=== PATIENT | female | born 1950 | race Caucasian/White ===

== ENCOUNTER 2017-06-13 09:45 | Emergency (ER) | payer MEDICARE ==
[~2017-06-13] VITALS: Ht 162.6 cm; Wt 60.0 kg
[~2017-06-13 09:45] MED LIST: ATOR80TA41 PO; CARV3.125 PO; CLAR10TA13 PO; DOXY100T OR; LISI5 PO; METF850T PO; NEUR600T PO; PRAS10 PO
[2017-06-13 09:47] VITALS: BP 134/90; PULSE 92; RESP 20; TEMP 98.8; O2SAT 97
[2017-06-13] MEDS ORDERED: CARV3.12 PO (10:23)
[2017-06-13] MEDS ORDERED: SITA1TAB2 PO (10:23)
[2017-06-13] MEDS ORDERED: DULA10IN SQ (10:23)
[2017-06-13] MEDS ORDERED: LISI2.5T3 PO (10:23)
[2017-06-13] MEDS ORDERED: ATOR1TAB18 PO (10:23)
[2017-06-13] MEDS ORDERED: BACL10TA PO (10:23)
[2017-06-13] MEDS ORDERED: CLOP75TA PO (10:23)
[2017-06-13] MEDS ORDERED: LYRI75CA PO (10:23)
[2017-06-13] MEDS ORDERED: SERT-132 PO (10:23)
[2017-06-13] MEDS ORDERED: SODIUM CHLOR 0.9% 1000 ML INJ 1,000 ML IV ONE (10:38)
[2017-06-13] MEDS ORDERED: SODIUM CHLORIDE 0.9% FLUSH 10 ML FLUSH IVF PRN (10:45)
[2017-06-13 11:12] LABS: BASOPHIL # 0.1 TH/MM3 (0-0.2); BASOPHIL % 0.6 % (0.0-2.0); EOSINOPHIL # 0.1 TH/MM3 (0-0.4); EOSINOPHIL % 0.6 % (0.0-4.0); HEMATOCRIT 36.1 % (35.0-46.0); HEMO FLAGS DIFF FINAL; LYMPH % 24.5 % (9.0-44.0); LYMPHOCYTE # 2.3 TH/MM3 (1.0-4.8); MEAN CORPUSCULAR HEMOGLOBIN 29.5 PG (27.0-34.0); MEAN CORPUSCULAR HGB CONC 34.7 % (32.0-36.0); MONO % 9.3 % (0.0-8.0); PLATELET COUNT 374 TH/MM3 (150-450); RED BLOOD COUNT 4.25 MIL/MM3 (4.00-5.30); RED CELL DISTRIBUTION WIDTH 15.2 % (11.6-17.2); WHITE BLOOD COUNT 9.3 TH/MM3 (4.0-11.0)
[2017-06-13 11:19] LABS: BACTERIA, URINE MOD /hpf; BLOOD, URINE NEG (NEG); COMMENT (UR) CULTURE INDICATED; CULTURE IF INDICATED CULTURE INDICATED; GLUCOSE,URINE 300 mg/dL (NEG); KETONE, URINE NEG (NEG); NITRITE,URINE NEG (NEG); PH, URINE 6.5 (5.0-8.5); SQUAMOUS EPITHELIAL CELL URINE 1 /hpf (0-5); TRANSITIONAL EPI CELLS, URINE <1 /hpf; URINE COLOR YELLOW (YELLW/STRAW)
[2017-06-13 11:21] LABS: APTT (PATIENT) 25.8 SEC (24.3-30.1); PROTHROMBIN TIME - PATIENT 10.7 SEC (9.8-11.6)
--- NOTE | 2017-06-13 11:23 | RADRPT ---
EXAM DATE/TIME: 06/13/2017 10:54 [facility] COMPARISON: No previous studies available for comparison. INDICATIONS : Fell hitting head on Felix now with increase confusion,right frontal pain. RADIATION DOSE: 56.35 CTDIvol (mGy) MEDICAL HISTORY : Carcinoma, breast. Syncope SURGICAL HISTORY : Hysterectomy. Breast lumpectomy ENCOUNTER: Initial ACUITY: 3 days PAIN SCALE: 5/10 LOCATION: Right cranial TECHNIQUE: Multiple contiguous axial images were obtained of the head. Using automated exposure control and adj ustment of the mA and/or kV according to patient size, radiation dose was kept as low as reasonably a chievable to obtain optimal diagnostic quality images. DICOM format image data is available electro nically for review and comparison. FINDINGS: CEREBRUM: The ventricles are normal for age. No evidence of midline shift, mass lesion, hemorrhage or acute in farction. No extra-axial fluid collections are seen. POSTERIOR FOSSA: The cerebellum and brainstem are intact. The 4th ventricle is midline. The cerebellopontine angle i s unremarkable. EXTRACRANIAL: The visualized portion of the orbits is intact. SKULL: The calvaria is intact. No evidence of skull fracture. CONCLUSION: Normal examination for a patient of this age. Ramos Brown MD on June 13, 2017 at 11:18 Board Certified Radiologist. This report was verified electronically.
[2017-06-13] MEDS ORDERED: MORPHINE SULFATE 4 MG/ML INJ IV PUSH ONE (11:30)
[2017-06-13 11:40] LABS: ALT (GPT) 22 U/L (10-53); ANION GAP 9 MEQ/L (5-15); AST (GOT) 19 U/L (15-37); BICARBONATE 31.7 MEQ/L (21.0-32.0); BLOOD UREA NITROGEN 9 MG/DL (7-18); CHLORIDE 99 MEQ/L (98-107); GLOMERULAR FILTRATION RATE 90 ML/MIN (>89); POTASSIUM 3.5 MEQ/L (3.5-5.1); SODIUM (NA) 140 MEQ/L (136-145)
--- NOTE | 2017-06-13 11:40 | RADRPT ---
EXAM DATE/TIME: 06/13/2017 10:56 [facility] COMPARISON: No previous studies available for comparison. INDICATIONS : Fell three days ago. RADIATION DOSE: 32.54 CTDIvol (mGy) MEDICAL HISTORY : Carcinoma, breast. Syncope SURGICAL HISTORY : Hysterectomy. Lumpectomy ENCOUNTER: Initial ACUITY: 3 days PAIN SCALE: 5/10 LOCATION: neck TECHNIQUE: Volumetric scanning of the cervical spine was performed. Multiplanar reconstructions in the sagittal, coronal and oblique axial planes were performed. Using automated exposure control and adjustment o f the mA and/or kV according to patient size, radiation dose was kept as low as reasonably achievable to obtain optimal diagnostic quality images. DICOM format image data is available electronically f or review and comparison. FINDINGS: VERTEBRAE: Normal vertebral body height. ALIGNMENT: No evidence of subluxation. C2-C3: The bony spinal canal is normal in size. No evidence of disc bulge or herniation. The neural forami na are bilaterally patent. C3-C4: The bony spinal canal is normal in size. No evidence of disc bulge or herniation. The neural forami na are bilaterally patent. C4-C5: The bony spinal canal is normal in size. No evidence of disc bulge or herniation. The neural forami na are bilaterally patent. C5-C6: The bony spinal canal is normal in size. No evidence of disc bulge or herniation. The neural forami na are bilaterally patent. C6-C7: The bony spinal canal is normal in size. No evidence of disc bulge or herniation. The neural forami na are bilaterally patent. C7-T1: The bony spinal canal is normal in size. No evidence of disc bulge or herniation. The neural forami na are bilaterally patent. CONCLUSION: 1. No acute findings. Mild degenerative disc disease and facet arthropathy. No canal stenosis. Subcen timeter nodule right lobe thyroid gland. Ramos Brown MD on June 13, 2017 at 11:36 Board Certified Radiologist. This report was verified electronically.
[2017-06-13 11:43] LABS: ALKALINE PHOSPHATASE 129 U/L (45-117); CREATINE KINASE 391 U/L (26-192); TOTAL BILIRUBIN ADULT 0.5 MG/DL (0.2-1.0)
--- NOTE | 2017-06-13 11:53 | RADRPT ---
EXAM DATE/TIME: 06/13/2017 11:03 [facility] COMPARISON: CHEST SINGLE AP, February 05, 2015, 14:24. INDICATIONS : Chest pain; fall 3 days ago. MEDICAL HISTORY : Carcinoma, breast. Hypertension Diabetes. SURGICAL HISTORY : Left breast lumpectomy. ENCOUNTER: Initial ACUITY: 3 days PAIN SCORE: 8/10 LOCATION: Left chest FINDINGS: A single view of the chest demonstrates the lungs to be symmetrically aerated without evidence of mas s, infiltrate or effusion. Minimal linear atelectasis or scarring at the bases. The cardiomediastinal contours are unremarkable. Osseous structures are intact. CONCLUSION: 1. Minimal linear atelectasis or scarring at the lung bases. No effusion or pneumothorax. Ramos Brown MD on June 13, 2017 at 11:49 Board Certified Radiologist. This report was verified electronically.
--- NOTE | 2017-06-13 13:23 | RADRPT ---
EXAM DATE/TIME: 06/13/2017 12:34 [facility] COMPARISON: No previous studies available for comparison. INDICATIONS : Fall. Tailbone pain. MEDICAL HISTORY : Carcinoma, breast. Hypertension Diabetes. SURGICAL HISTORY : Hysterectomy. Left breast lumpectomy. ENCOUNTER: Initial ACUITY: 2 days PAIN SCORE: 8/10 LOCATION: Coccyx FINDINGS: Two-view examination of the sacrum and coccyx demonstrates no evidence of fracture or malalignment. The sacral ala and foramina appear symmetric and intact. The coccyx appears unremarkable. The preve rtebral soft tissues are within normal limits. CONCLUSION: 1. No acute findings. Mild degenerative change of the sacroiliac joints and pubic symphysis. Ramos Brown MD on June 13, 2017 at 13:19 Board Certified Radiologist. This report was verified electronically.
--- NOTE | 2017-06-13 13:24 | RADRPT ---
EXAM DATE/TIME: 06/13/2017 12:24 [facility] COMPARISON: No previous studies available for comparison. INDICATIONS : Fall. Tailbone pain. MEDICAL HISTORY : Carcinoma, breast. Hypertension Diabetes. SURGICAL HISTORY : Hysterectomy. Left breast lumpectomy. ENCOUNTER: Initial ACUITY: 2 days PAIN SCORE: 9/10 LOCATION: Coccyx FINDINGS: 5 views of the lumbar spine demonstrate 5 nonrib-bearing lumbar vertebral bodies with leftward convex curvature. No fracture or compression deformity is present. There is minimal anterolisthesis of L5 o n S1. There is severe facet hypertrophy at L5-S1. Decreased disc height is present at L3-L4 and L4-L5 . Small endplate osteophytes are present anteriorly at multiple levels. Pelvic bones and soft tissues demonstrate no acute finding. Clips are present in the pelvis. CONCLUSION: Mild levoscoliosis with degenerative disc disease at L3-L4 and L4-L5. There is severe facet hypertrop hy at L5-S1 resulting in minimal anterolisthesis. No acute lumbar spine abnormality is identified. Andrey Lopez MD on June 13, 2017 at 13:20 Board Certified Radiologist. This report was verified electronically.
[2017-06-13] MEDS ORDERED: MACR100C2 PO (13:40)
[2017-06-13] MEDS ORDERED: TRAM50TA PO (13:40)
--- NOTE | 2017-06-13 13:40 | PD ---
HPI Chief Complaint: Head Injury Time Seen by Provider: 10:03 Travel History International Travel<30 days: No Contact w/Intl Traveler<30days: No Traveled to known affect area: No History of Present Illness HPI Patient is a 67-year-old female who comes in after a fall. She said that Saturday she fell and hit her head. She says she was very "woozy" at the time. She says she then repeatedly fell and hit her head. She says since then, she has had pain to her tailbone as well as her left rib cage. She says she took her sister to the doctor and her sister's doctor suggested she come and get checked out. She has she also feels like she has symptoms of a UTI. She has not had fever or chills. She denies dizziness or nausea or vomiting. She denies chest pain or shortness of breath. PFSH Past Medical History Blood Disorders: No Anxiety: Yes Depression: Yes Heart Rhythm Problems: No Cancer: Yes (breast) Cardiovascular Problems: Yes High Cholesterol: No Chemotherapy: Yes (2002) Cerebrovascular Accident: No Diabetes: Yes Patient Takes Glucophage: Yes Diminished Hearing: No Endocrine: Yes Fibromyalgia: Yes Gastrointestinal Disorders: No Genitourinary: Yes Headaches: Yes Hypertension: Yes Immune Disorder: Yes (FIBROMYALGIA) Kidney Stones: No Musculoskeletal: Yes (FIBROMYALGIA) Neurologic: Yes Psychiatric: No Reproductive: No Respiratory: No Radiation Therapy: Yes Renal Failure: No Seizures: No Thyroid Disease: No PNEUMOCCOCAL Vaccine (Year): 2 Past Surgical History Surgical History: No Previous Surgery AICD: No Gynecologic Surgery: Yes (TOTAL HYSTERECTOMY) Hysterectomy: Yes Joint Replacement: No Pacemaker: No Other Surgery: Yes (lumpectomy left breast 2000) Social History Alcohol Use: Yes (Rarely) Tobacco Use: No Substance Use: No Allergies-Medications (Allergen,Severity, Reaction): Coded Allergies: Aspirin (Verified Allergy, Severe, 02/08/12) UNKNOWN Levaquin (Verified Allergy, Severe, SWELLING, 02/08/12) Shellfish (Verified Allergy, Mild, VOMITING/DIARRHEA, 02/08/12) Insulins (Verified Adverse Reaction, Intermediate, Shortness of Breath, ) SHORTNESS OF BREATH AND ITCHING WHEN SHE HAS HAD NOVOLOG IN THE PAST Reported Meds & Prescriptions Reported Meds & Active Scripts Active Tramadol (Tramadol HCl) 50 Mg Tab 50 Mg PO Q6H PRN Macrobid (Nitrofurantoin Monohydrate Macrocrystals) 100 Mg Capsule 100 Mg PO BID 5 Days Reported Trulicity Inj (Dulaglutide Inj) 0.75 Mg/0.5 Ml Pen 0.75 Mg SQ Q7D Lyrica (Pregabalin) 75 Mg Cap 75 Mg PO BID Carvedilol 3.125 Mg Tab 3.125 Mg PO BID Baclofen 10 Mg Tab 10 Mg PO DAILY PRN Sertraline (Sertraline HCl) 50 Mg Tab 50 Mg PO DAILY Januvia (Sitagliptin Phosphate) 100 Mg Tab 100 Mg PO DAILY Clopidogrel (Clopidogrel Bisulfate) 75 Mg Tab 75 Mg PO DAILY Atorvastatin (Atorvastatin Calcium) 80 Mg Tab 80 Mg PO HS Lisinopril 2.5 Mg Tab 2.5 Mg PO DAILY Review of Systems Except as stated in HPI: all other systems reviewed are Neg General / Constitutional: No: Fever, Chills Eyes: No: Blurred Vision HENT: Positive: Headaches Cardiovascular: No: Chest Pain or Discomfort Respiratory: No: Shortness of Breath Gastrointestinal: No: Nausea, Vomiting, Abdominal Pain Genitourinary: Positive: Dysuria Musculoskeletal: Positive: Pain Skin: No Rash, No Change in Pigmentation Neurologic: No: Weakness, Dizziness Physical Exam Narrative GENERAL: Awake and alert, in no acute distress. SKIN: Focused skin assessment warm/dry. HEAD: Atraumatic. Normocephalic. EYES: Pupils equal and round. No scleral icterus. Extraocular movements intact. ENT: Mucous membranes pink and moist. NECK: Trachea midline. No JVD. No cervical spine tenderness. CARDIOVASCULAR: Regular rate and rhythm. No murmur appreciated. RESPIRATORY: No accessory muscle use. Clear to auscultation. Breath sounds equal bilaterally. GASTROINTESTINAL: Abdomen soft, non-tender, nondistended. MUSCULOSKELETAL: No obvious deformities. No clubbing. No cyanosis. No edema. Tender to palpation of the sacral area. No pelvic pain or instability. NEUROLOGICAL: Awake and alert. No obvious cranial nerve deficits. Motor grossly within normal limits. Normal speech. PSYCHIATRIC: Appropriate mood and affect; insight and judgment normal. Data Data Last Documented VS Vital Signs Date Time Temp Pulse Resp B/P Pulse Ox O2 Delivery O2 Flow Rate FiO2 06/13/17 09:47 98.8 92 20 134/90 97 Room Air Orders Electrocardiogram (06/13/17 ) Complete Blood Count With Diff (06/13/17 10:38) Comprehensive Metabolic Panel (06/13/17 10:38) Ckmb (Isoenzyme) Profile (06/13/17 10:38) Troponin I (06/13/17 10:38) Act Partial Throm Time (Ptt) (06/13/17 10:38) Prothrombin Time / Inr (Pt) (06/13/17 10:38) Urinalysis - C+S If Indicated (06/13/17 10:38) Ua Includes Microscopic (06/13/17 10:38) Chest, Single Ap (06/13/17 10:38) Ct Brain W/O Iv Contrast(Rout) (06/13/17 10:38) Ct Cerv Spine W/O Contrast (06/13/17 10:38) Ecg Monitoring (06/13/17 10:38) Iv Access Insert/Monitor (06/13/17 10:38) Oximetry (06/13/17 10:38) Sodium Chloride 0.9% Flush (Ns Flush) (06/13/17 10:45) Sodium Chlor 0.9% 1000 Ml Inj (Ns 1000 M (06/13/17 10:38) Morphine Inj (Morphine Inj) (06/13/17 11:30) Urine Culture (06/13/17 10:45) CKMB (06/13/17 10:45) CKMB% (06/13/17 10:45) Spine, Lumbar Comp W/Obliq (06/13/17 ) Sacrum And Coccyx (06/13/17 ) Labs Laboratory Tests Test 06/13/17 10:45 White Blood Count 9.3 TH/MM3 Red Blood Count 4.25 MIL/MM3 Hemoglobin 12.5 GM/DL Hematocrit 36.1 % Mean Corpuscular Volume 85.0 FL Mean Corpuscular Hemoglobin 29.5 PG Mean Corpuscular Hemoglobin 34.7 % Concent Red Cell Distribution Width 15.2 % Platelet Count 374 TH/MM3 Mean Platelet Volume 7.5 FL Neutrophils (%) (Auto) 65.0 % Lymphocytes (%) (Auto) 24.5 % Monocytes (%) (Auto) 9.3 % Eosinophils (%) (Auto) 0.6 % Basophils (%) (Auto) 0.6 % Neutrophils # (Auto) 6.0 TH/MM3 Lymphocytes # (Auto) 2.3 TH/MM3 Monocytes # (Auto) 0.9 TH/MM3 Eosinophils # (Auto) 0.1 TH/MM3 Basophils # (Auto) 0.1 TH/MM3 CBC Comment DIFF FINAL Differential Comment Prothrombin Time 10.7 SEC Prothromb Time International 1.0 RATIO Ratio Activated Partial 25.8 SEC Thromboplast Time Urine Color YELLOW Urine Turbidity CLEAR Urine pH 6.5 Urine Specific [place] 1.008 Urine Protein NEG mg/dL Urine Glucose (UA) 300 mg/dL Urine Ketones NEG mg/dL Urine Occult Blood NEG Urine Nitrite NEG Urine Bilirubin NEG Urine Urobilinogen LESS THAN 2.0 MG/DL Urine Leukocyte Esterase LARGE Urine RBC 1 /hpf Urine WBC 28 /hpf Urine Squamous Epithelial 1 /hpf Cells Urine Transitional Epithelial <1 /hpf Cells Urine Bacteria MOD /hpf Microscopic Urinalysis Comment CULTURE INDICATED Sodium Level 140 MEQ/L Potassium Level 3.5 MEQ/L Chloride Level 99 MEQ/L Carbon Dioxide Level 31.7 MEQ/L Anion Gap 9 MEQ/L Blood Urea Nitrogen 9 MG/DL Creatinine 0.66 MG/DL Estimat Glomerular Filtration 90 ML/MIN Rate Random Glucose 235 MG/DL Calcium Level 8.7 MG/DL Total Bilirubin 0.5 MG/DL Aspartate Amino Transf 19 U/L (AST/SGOT) Alanine Aminotransferase 22 U/L (ALT/SGPT) Alkaline Phosphatase 129 U/L Total Creatine Kinase 391 U/L Creatine Kinase MB 1.0 NG/ML Creatine Kinase MB % 0.3 % Troponin I LESS THAN 0.02 NG/ML Total Protein 7.1 GM/DL Albumin 3.3 GM/DL [facility] Medical Decision Making Medical Screen Exam Complete: Yes Emergency Medical Condition: Yes Medical Record Reviewed: Yes Differential Diagnosis ICH versus concussion versus cervical spine injury versus sacral fracture Narrative Course Patient is a 67-year-old female who comes in after a fall on Saturday. Exam shows some tenderness to the sacrum. IV status, labs sent. Labs show no acute abnormalities. Urinalysis is positive for UTI. CT head and C-spine performed show no acute abnormalities. Chest x-ray, lumbar spine x-ray, sacral x-ray show no acute abnormalities. Last [address] 06/13/17 1038 Signed Impressions: Service Date/Time: June 10:54 - CONCLUSION: Normal examination for a patient of this age. Ramos Brown MD Chest X-Ray 06/13/17 1038 Signed Impressions: Service Date/Time: June 11:03 - CONCLUSION: 1. Minimal linear atelectasis or scarring at the lung bases. No effusion or pneumothorax. Ramos Brown MD Cervical Spine CT 06/13/17 1038 Signed Impressions: Service Date/Time: June 10:56 - CONCLUSION: 1. No acute findings. Mild degenerative disc disease and facet arthropathy. No canal stenosis. Subcentimeter nodule right lobe thyroid gland. Ramos Brown MD Sacrum and Coccyx X-Ray 06/13/17 0000 Signed Impressions: Service Date/Time: June 12:34 - CONCLUSION: 1. No acute findings. Mild degenerative change of the sacroiliac joints and pubic symphysis. Ramos Brown MD Lumbar Spine X-Ray 06/13/17 0000 Signed Impressions: Service Date/Time: June 12:24 - CONCLUSION: Mild levoscoliosis with degenerative disc disease at L3-L4 and L4-L5. There is severe facet hypertrophy at L5-S1 resulting in minimal anterolisthesis. No acute lumbar spine abnormality is identified. Andrey Lopez MD Patient given a prescription for tramadol as well as Macrobid for her UTI. She is advised follow-up with her doctor. Advised to return to the ED as needed for any worsening symptoms. Diagnosis Primary Impression: UTI (urinary tract infection) Qualified Code: N30.00 - Acute cystitis without hematuria Additional Impression: Musculoskeletal pain Patient Instructions: General Instructions, Musculoskeletal Pain (ED), Urinary Tract Infection in Women (ED) Additional Instructions: Drink plenty of fluids. Take all of your antibiotic. Take pain medicine as needed, be careful as it may make you drowsy. Follow up with your doctor. Return to the ED as needed for any worsening symptoms. Scripts Tramadol 50 Mg Tab50 Mg PO Q6H PRN (PAIN) #10 TAB Ref 0 Prov:Kamini Hunt MD 06/13/17 Nitrofurantoin Monohydrate Macrocrystals (Macrobid)100 Mg [id number] Mg PO BID 5 Days Ref 0 Prov:Kamini Hunt MD 06/13/17 Disposition: 01 DISCHARGE HOME Condition: Stable Kamini Hunt MD Jun 13, 2017 13:40
--- NOTE | 2017-06-13 15:05 | EKG ---
Date Performed: 06/13/2017 Time Performed: 10:09:44 PTAGE: 67 years EKG: Sinus rhythm INFERIOR MYOCARDIAL INFARCTION ABNORMAL ECG PREVIOUS TRACING : 02/06/2015 06.13 Since previous tracing, no significant change noted DOCTOR: Kayleigh Power Interpretating Date/Time 06/13/2017 15:05:11
== END 2017-06-13 13:51 | disposition home or self-care (01) ==
LOC: NEPE 09:45
DX: N39.0 Urinary tract infection, site not specified (principal); B96.1 Klebsiella pneumoniae [K. pneumoniae] as the cause of diseases classified elsewhere; R52 Pain, unspecified; M51.36 Other intervertebral disc degeneration, lumbar region; I25.2 Old myocardial infarction; R94.31 Abnormal electrocardiogram [ECG] [EKG]; E11.9 Type 2 diabetes mellitus without complications; I10 Essential (primary) hypertension; M79.7 Fibromyalgia
CPT/HCPCS: 70450; 71010; 72110; 72125; 72220; 80053; 81001; 82550; 82552; 84484; 85025; 85610; 85730; 87077; 87086; 87186; 93005; 96361; 96374; 99285; J2270; J7030

== ENCOUNTER 2018-05-03 07:44 | Observation (INO) | payer MEDICARE ==
[~2018-05-03] VITALS: Ht 162.6 cm; Wt 59.0 kg
[2018-05-03] VITALS (7 sets, daily range): BP systolic 118–146; BP diastolic 68–82; PULSE 86–107; RESP 16–18; TEMP 97.8–98.7; O2SAT 93–99
[~2018-05-03 07:44] MED LIST changes: -ATOR80TA41 PO; +ATOR80TA45 PO; +BACL10TA PO; +CARV3.12 PO; -CARV3.125 PO; -CLAR10TA13 PO; +CLOP75TA PO; -DOXY100T OR; +DULA10IN SQ; +LISI2.5T3 PO; -LISI5 PO; +LYRI75CA PO; +MACR100C2 PO; -METF850T PO; -NEUR600T PO; -PRAS10 PO; +SERT-132 PO; +SITA1TAB2 PO; +TRAM50TA PO
--- NOTE | 2018-05-03 08:18 | PD ---
HPI Chief Complaint: Musculoskeletal Complaint Time Seen by Provider: 08:05 Travel History International Travel<30 days: No Contact w/Intl Traveler<30days: No Traveled to known affect area: No History of Present Illness HPI 68yo F with PMH of CAD s/p stent presents to the ED with c/o bilateral leg weakness for 1 month but is worst last night. Said her knees give out and they "dont work". Pt said she does not have pain in her knees but they just dont work. Said she is unable to ambulate since yesterday. Pt has chronic lower back pain for 1 year. Denies any fever, chest pain, sob, n/v, abdominal pain, focal numbness, urinary incontinence. Said she cannot have an MRI because of her stent. PFSH Past Medical History Blood Disorders: No Anxiety: Yes Depression: Yes Heart Rhythm Problems: No Cancer: Yes (breast) Cardiovascular Problems: Yes High Cholesterol: No Chemotherapy: Yes (2002) Cerebrovascular Accident: No Diabetes: Yes Diminished Hearing: No Endocrine: Yes Fibromyalgia: Yes Gastrointestinal Disorders: No Genitourinary: Yes Headaches: Yes Hypertension: Yes Immune Disorder: Yes (FIBROMYALGIA) Kidney Stones: No Musculoskeletal: Yes (FIBROMYALGIA) Neurologic: Yes Psychiatric: No Reproductive: No Respiratory: No Radiation Therapy: Yes Renal Failure: No Seizures: No Thyroid Disease: No PNEUMOCCOCAL Vaccine (Year): 2 Past Surgical History AICD: No Gynecologic Surgery: Yes (TOTAL HYSTERECTOMY) Hysterectomy: Yes Joint Replacement: No Pacemaker: No Other Surgery: Yes (lumpectomy left breast 2000) Social History Alcohol Use: Yes (Rarely) Tobacco Use: No Substance Use: No Allergies-Medications (Allergen,Severity, Reaction): Coded Allergies: aspirin (Verified Allergy, Severe, Anaphylaxis, 05/03/18) levofloxacin (Verified Allergy, Severe, Anaphylaxis, 05/03/18) insulin aspart (Unverified Adverse Reaction, Intermediate, Shortness of Breath, 06/25/17) SHORTNESS OF BREATH AND ITCHING WHEN SHE HAS HAD NOVOLOG IN THE PAST insulin aspart protamine human (Verified Adverse Reaction, Intermediate, Shortness of Breath, 05/03/18) SHORTNESS OF BREATH AND ITCHING WHEN SHE HAS HAD NOVOLOG IN THE PAST insulin detemir (Verified Adverse Reaction, Intermediate, Shortness of Breath, 05/03/18) SHORTNESS OF BREATH AND ITCHING WHEN SHE HAS HAD NOVOLOG IN THE PAST insulin glargine (Verified Adverse Reaction, Intermediate, Shortness of Breath, 05/03/18) SHORTNESS OF BREATH AND ITCHING WHEN SHE HAS HAD NOVOLOG IN THE PAST insulin isophane (NPH) (Verified Adverse Reaction, Intermediate, Shortness of Breath, 05/03/18) SHORTNESS OF BREATH AND ITCHING WHEN SHE HAS HAD NOVOLOG IN THE PAST insulin lispro (Verified Adverse Reaction, Intermediate, Shortness of Breath, 05/03/18) SHORTNESS OF BREATH AND ITCHING WHEN SHE HAS HAD NOVOLOG IN THE PAST insulin regular (Verified Adverse Reaction, Intermediate, Shortness of Breath, 05/03/18) SHORTNESS OF BREATH AND ITCHING WHEN SHE HAS HAD NOVOLOG IN THE PAST shellfish derived (Verified Adverse Reaction, Mild, VOMITING/DIARRHEA, ) Reported Meds & Prescriptions Reported Meds & Active Scripts Active Tramadol (Tramadol HCl) 50 Mg Tab 50 Mg PO Q6H PRN Macrobid (Nitrofurantoin Monohydrate Macrocrystals) 100 Mg Capsule 100 Mg PO BID 5 Days Reported Victoza Inj (Liraglutide Inj) 18 Mg/3 Ml Pen 1.2 Mg SQ DAILY Janumet (Sitagliptin-Metformin) 50-1,000 Mg Tab 1 Tab PO BID Gabapentin 600 Mg Tab 600 Mg PO TID Lyrica (Pregabalin) 75 Mg Cap 75 Mg PO BID Carvedilol 3.125 Mg Tab 3.125 Mg PO BID Baclofen 10 Mg Tab 10 Mg PO DAILY PRN Sertraline (Sertraline HCl) 50 Mg Tab 50 Mg PO DAILY Clopidogrel (Clopidogrel Bisulfate) 75 Mg Tab 75 Mg PO DAILY Atorvastatin (Atorvastatin Calcium) 80 Mg Tab 80 Mg PO HS Lisinopril 2.5 Mg Tab 2.5 Mg PO DAILY Review of Systems Except as stated in HPI: all other systems reviewed are Neg Physical Exam Narrative GENERAL: 68yo F in mild distress. SKIN: Focused skin assessment warm/dry. HEAD: Atraumatic. Normocephalic. EYES: Pupils equal and round. No scleral icterus. No injection or drainage. ENT: No nasal bleeding or discharge. Mucous membranes pink and moist. NECK: Trachea midline. No JVD. CARDIOVASCULAR: Regular rate and rhythm. No murmur appreciated. RESPIRATORY: No accessory muscle use. Clear to auscultation. Breath sounds equal bilaterally. GASTROINTESTINAL: Abdomen soft, nontender, nondistended. No rebound tenderness or guarding. BACK: Mild ttp L4-5. No erythema. No edema. MUSCULOSKELETAL: Some erythema in bilateral knees. Distal pulses intact. No edema. Deep tendon reflex bilateral knees normal. NEUROLOGICAL: Awake and alert. No obvious cranial nerve deficits. Pt is unable to elevated bilateral lower extremity off the bed. Muscle strength 3/5 in bilateral lower extremity. Sensation intact in all extremities. Normal speech. PSYCHIATRIC: Appropriate mood and affect; insight and judgment normal. Data Data Last Documented VS Vital Signs Date Time Temp Pulse Resp B/P (MAP) Pulse Ox O2 Delivery O2 Flow Rate FiO2 05/03/18 10:00 97.8 96 18 118/77 (91) 99 Room Air Orders Orders Complete Blood Count With Diff (05/03/18 08:14) Basic Metabolic Panel (Bmp) (05/03/18 08:14) Knee, Ltd (1 Or 2vws) (05/03/18 ) Knee, Ltd (1 Or 2vws) (05/03/18 ) Ct Lumb Spine W/O Contrast (05/03/18 ) Ct Brain W/O Iv Contrast(Rout) (05/03/18 ) Oxycodone-Acetamin 5-325 Mg (Percocet (05/03/18 10:30) Admit Order (Ed Use Only) (05/03/18 11:15) Labs Laboratory Tests Test 05/03/18 08:50 White Blood Count 9.9 TH/MM3 Red Blood Count 4.45 MIL/MM3 Hemoglobin 13.1 GM/DL Hematocrit 39.4 % Mean Corpuscular Volume 88.6 FL Mean Corpuscular Hemoglobin 29.5 PG Mean Corpuscular Hemoglobin Concent 33.3 % Red Cell Distribution Width 14.3 % Platelet Count 205 TH/MM3 Mean Platelet Volume 9.3 FL Neutrophils (%) (Auto) 67.8 % Lymphocytes (%) (Auto) 20.9 % Monocytes (%) (Auto) 10.0 % Eosinophils (%) (Auto) 1.0 % Basophils (%) (Auto) 0.3 % Neutrophils # (Auto) 6.7 TH/MM3 Lymphocytes # (Auto) 2.1 TH/MM3 Monocytes # (Auto) 1.0 TH/MM3 Eosinophils # (Auto) 0.1 TH/MM3 Basophils # (Auto) 0.0 TH/MM3 CBC Comment DIFF FINAL Differential Comment Erythrocyte Sedimentation Rate 24 mm/hr Blood Urea Nitrogen 10 MG/DL Creatinine 0.80 MG/DL Random Glucose 428 MG/DL Calcium Level 9.3 MG/DL Sodium Level 136 MEQ/L Potassium Level 3.7 MEQ/L Chloride Level 98 MEQ/L Carbon Dioxide Level 25.7 MEQ/L Anion Gap 12 MEQ/L Estimat Glomerular Filtration Rate 72 ML/MIN Total Creatine Kinase 108 U/L Thyroid Stimulating Hormone 3rd Gen 1.040 uIU/ML MDM Medical Decision Making Medical Screen Exam Complete: Yes Emergency Medical Condition: Yes Differential Diagnosis Arthritis vs. Spinal stenosis vs. CVA Narrative Course 68yo F here with c/o inability to walk since last night because of bilateral lower extremity weakness. Pt said her knees just give out and her legs are weak. Denies pain but was kneeling on her knees and could not get up. Labs reviewed, no leukocytosis. H/H normal. Glucose elevated at 428. No increased anion gap. CT brain negative. Bilateral knees showed mild osteoarthritis. CT LS spine showed no compression fracture or spondylolisthesis. Multilevel disc bulges without canal stenosis. Mild degenerative changes. Attempted to walk patient but she is weak and have abnormal gait. Pt initially said she cant have MRI because of her stent so that was why CT was ordered but now said it is conditional so may be able to have it. Pt will need further work up as an inpatient so discussed with Dr. Abad and accepted to his service. Diagnosis Primary Impression: Lower extremity weakness Qualified Codes: R29.898 - Other symptoms and signs involving the musculoskeletal system Admitting Information Admitting Physician Requests: it Karly Vasquez DO May 03, 2018 08:18
[2018-05-03] MEDS ORDERED: JANU50TA8 PO (08:22)
[2018-05-03] MEDS ORDERED: GABA600T PO (08:22)
[2018-05-03] MEDS ORDERED: VICT18IN SQ (08:22)
--- NOTE | 2018-05-03 08:49 | RADRPT ---
EXAM DATE: 05/03/2018 8:44 AM EDT AGE/SEX: 68 years / Female INDICATIONS: Trauma. CLINICAL DATA: This is the patient's initial encounter. Patient reports that signs and symptoms have been present for 1 day and indicates a pain score of 0/10. MEDICAL/SURGICAL HISTORY: Vertigo. None. COMPARISON: No prior exams available for comparison. FINDINGS: Bony structures are intact and in normal alignment. Mild osteoarthritis without fracture. Soft tissue s are unremarkable. No radiopaque foreign bodies seen. CONCLUSION: Mild osteoarthritis without fracture. Electronically signed by: Adria Moreno MD 05/03/2018 8:48 AM EDT
--- NOTE | 2018-05-03 08:49 | RADRPT ---
EXAM DATE: 05/03/2018 8:43 AM EDT AGE/SEX: 68 years / Female INDICATIONS: Trauma. CLINICAL DATA: This is the patient's initial encounter. Patient reports that signs and symptoms have been present for 1 day and indicates a pain score of 0/10. MEDICAL/SURGICAL HISTORY: None. None. COMPARISON: No prior exams available for comparison. FINDINGS: Bony structures are intact and in normal alignment. Mild osteoarthritis without fracture or dislocati on. Soft tissues are unremarkable. No radiopaque foreign bodies seen. CONCLUSION: Mild osteoarthritis without fracture. Electronically signed by: Adria Moreno MD 05/03/2018 8:47 AM EDT
[2018-05-03 09:12] LABS: AUTOMATED NEUTROPHIL # 6.7 TH/MM3 (1.8-7.7); BASOPHIL % 0.3 % (0.0-2.0); EOSINOPHIL # 0.1 TH/MM3 (0-0.4); HEMATOCRIT 39.4 % (35.0-46.0); HEMOGLOBIN 13.1 GM/DL (11.6-15.3); LYMPH % 20.9 % (9.0-44.0); LYMPHOCYTE # 2.1 TH/MM3 (1.0-4.8); MEAN CELL VOLUME 88.6 FL (80.0-100.0); MEAN CORPUSCULAR HEMOGLOBIN 29.5 PG (27.0-34.0); MEAN CORPUSCULAR HGB CONC 33.3 % (32.0-36.0); MEAN PLATELET VOLUME 9.3 FL (7.0-11.0); NEUT % 67.8 % (16.0-70.0); PLATELET COUNT 205 TH/MM3 (150-450); RED BLOOD COUNT 4.45 MIL/MM3 (4.00-5.30); RED CELL DISTRIBUTION WIDTH 14.3 % (11.6-17.2); WHITE BLOOD COUNT 9.9 TH/MM3 (4.0-11.0)
--- NOTE | 2018-05-03 09:15 | RADRPT ---
EXAM DATE: 05/03/2018 9:02 AM EDT AGE/SEX: 68 years / Female INDICATIONS: Syncopal episode last night with fall. Bilateral leg weakness for one month. CLINICAL DATA: This is the patient's initial encounter. Patient reports that signs and symptoms have been present for 1 day and indicates a pain score of 0/10. MEDICAL/SURGICAL HISTORY: Cardiovascular disease. Carcinoma, breast. Hypertension. Diabetes, Fib romyalgia. Coronary artery stent. RADIATION DOSE: 56.35 CTDI (mGy) COMPARISON: [facility] [place], CT BRAIN W/O CONTRAST, 06/13/2017. . TECHNIQUE: CT of the head without contrast. Using automated exposure control and adjustment of the mA and/or kV according to patient size, radiation dose was kept as low as reasonably achievable to ob tain optimal diagnostic quality images. DICOM format image data is available electronically for revi ew and comparison. FINDINGS: Cerebrum: The ventricles are normal for age. No evidence of midline shift, mass lesion, hemorrhage or acute infarction. No extraaxial fluid collections are seen. Posterior Fossa: The cerebellum and brainstem are intact. The 4th ventricle is midline. The cerebe llopontine angle is unremarkable. Extracranial: The visualized portion of the orbits is intact. Skull: The calvaria is intact. No evidence of skull fracture. CONCLUSION: 1. No acute intracranial abnormality Electronically signed by: Adria Moreno MD 05/03/2018 9:14 AM EDT
--- NOTE | 2018-05-03 09:19 | RADRPT ---
EXAM DATE: 05/03/2018 9:06 AM EDT AGE/SEX: 68 years / Female INDICATIONS: Bilteral leg weakness. Fall last night. CLINICAL DATA: This is the patient's initial encounter. Patient reports that signs and symptoms have been present for 1 day and indicates a pain score of 6/10. MEDICAL/SURGICAL HISTORY: Cardiovascular disease. Hypertension. Carcinoma, breast. Chronic back pain, fibromyalgia, diabetes. Hysterectomy. Coronary artery stent. RADIATION DOSE: 19.87 CTDI (mGy) COMPARISON: No prior exams available for comparison. TECHNIQUE: Contiguous axial images were acquired with a multirow detector CT scanner without contras t. Multiplanar reconstructions in the sagittal and coronal plane were also performed. Using automate d exposure control and adjustment of the mA and/or kV according to patient size, radiation dose was k ept as low as reasonably achievable to obtain optimal diagnostic quality images. DICOM format image data is available electronically for review and comparison. FINDINGS: Vertebrae: Normal vertebral body height. Diffuse mild degenerative changes. Alignment: Slight levo curvature. No spondylolisthesis. T12-L1: The thecal sac has a normal diameter. No evidence of disc bulge or protrusion. The neural foramina are patent bilaterally. L1-L2: Mild broad-based disc bulge abuts the ventral thecal sac without canal stenosis. The neural foramina are patent bilaterally. L2-L3: Mild broad-based disc bulge abuts the ventral thecal sac without canal stenosis.The neural fo ramina are patent bilaterally. L3-L4: Mild broad-based disc bulge abuts the ventral thecal sac without canal stenosis.The neural fo ramina are patent bilaterally. L4-L5: Mild broad-based disc bulge abuts the ventral thecal sac without canal stenosis. The neural f oramina are patent bilaterally. L5-S1: Mild broad-based disc bulge abuts the ventral thecal sac without canal stenosis. Mild neural foraminal narrowing bilaterally. Moderate facet arthropathy greater on the right. CONCLUSION: 1. No compression fracture or spondylolisthesis. 2. Levocurvature. 3. Mild degenerative changes. 4. Multilevel disc bulges without canal stenosis. Electronically signed by: Adria Moreno MD 05/03/2018 9:17 AM EDT
[2018-05-03 09:35] LABS: BICARBONATE 25.7 MEQ/L (21.0-32.0); CALCIUM 9.3 MG/DL (8.5-10.1); CREATININE 0.8 MG/DL (0.50-1.00)
[2018-05-03] MEDS ORDERED: oxyCODONE/ACETAMINOPHEN 5 MG/325 MG TAB PO ONE (10:30)
[2018-05-03] MEDS ORDERED: GADODIAMIDE PF 287 MG/ML 5 ML VIAL (for RAD MRI) IVCONTRAST ONE (11:18)
[2018-05-03] MEDS ORDERED: GLUCAGON 1 MG/ML VIAL OTHER PRN (11:45)
[2018-05-03] MEDS ORDERED: DEXTROSE 50% IN WATER 50 ML VIAL(D50) IV PUSH PRN (11:45)
[2018-05-03] MEDS ORDERED: BACLOFEN 10 MG TAB PO PRN (11:45)
[2018-05-03] MEDS ORDERED: SODIUM CHLORIDE 0.9% FLUSH 10 ML FLUSH IV FLUSH PRN (12:00)
[2018-05-03] MEDS ORDERED: BISACODYL 10 MG SUPP RECTAL PRN (12:00)
[2018-05-03] MEDS ORDERED: ACETAMINOPHEN 325 MG TAB PO PRN ×2 (12:00)
[2018-05-03] MEDS ORDERED: SENNOSIDES 8.6 MG TAB PO PRN (12:00)
[2018-05-03] MEDS ORDERED: LACTULOSE SYRUP 20 GM/30 ML CUP PO PRN (12:00)
[2018-05-03] MEDS ORDERED: INSULIN ASPART SUPPLEMENTAL SCALE SQ SCH (12:00)
[2018-05-03] MEDS ORDERED: NALOXONE HCL 0.4 MG/ML AMP IV PUSH PRN (12:00)
[2018-05-03] MEDS ORDERED: MAGNESIUM HYDROXIDE SUSP 30 ML CUP PO PRN (12:00)
--- NOTE | 2018-05-03 12:22 | HHI.HP ---
[facility] Unknown Admission Diagnosis Bilateral lower extremity weakness Diagnoses: Chief Complaint: Cannot walk Travel History International Travel<30 Days: No Contact w/Intl Traveler <30 Da: No Traveled to Known Affected Are: No History of Present Illness This is a 68-year-old female who presents to the emergency department complaining of inability to walk. Patient reports that for the past month she has been having problems with her knees giving out. Last night, she was unable to get up and ambulate because of her knees giving out. She had several falls and complains of bilateral elbow and knee pain. She also hit her head but denies loss of consciousness. She denies neck pain, unilateral weakness, fever , chills, insect bites, rash, nausea, difficulty swallowing, shortness of breath , chest pain, UTI symptoms, diarrhea, numbness and incontinence. Denies taking any new medicine. States she has chronic lower back pain, coronary artery disease status post stent in 2014, breast cancer status post surgery, chemo and radiation therapy, diabetes mellitus, hypertension, hyperlipidemia, fibromyalgia and depression. All other systems reviewed negative. Review of Systems Except as stated in HPI: all other systems reviewed are Neg Past Family Social History Past Medical History As previously mentioned Past Surgical History As previously mentioned. Total hysterectomy Reported Medications Active Tramadol (Tramadol HCl) 50 Mg Tab 50 Mg PO Q12H PRN Reported Victoza Inj (Liraglutide Inj) 18 Mg/3 Ml Pen 1.8 Mg SQ DAILY Janumet (Sitagliptin-Metformin) 50-1,000 Mg Tab 1 Tab PO BID Gabapentin 600 Mg Tab 600 Mg PO TID Lyrica (Pregabalin) 75 Mg Cap 75 Mg PO TID Carvedilol 3.125 Mg Tab 3.125 Mg PO BID Baclofen 10 Mg Tab 10 Mg PO HS PRN Sertraline (Sertraline HCl) 50 Mg Tab 50 Mg PO DAILY Clopidogrel (Clopidogrel Bisulfate) 75 Mg Tab 75 Mg PO DAILY Atorvastatin (Atorvastatin Calcium) 80 Mg Tab 80 Mg PO HS Lisinopril 2.5 Mg Tab 2.5 Mg PO DAILY Allergies: Coded Allergies: aspirin (Verified Allergy, Severe, Anaphylaxis, 05/03/18) levofloxacin (Verified Allergy, Severe, Anaphylaxis, 05/03/18) insulin aspart (Unverified Adverse Reaction, Intermediate, Shortness of Breath, 06/25/17) SHORTNESS OF BREATH AND ITCHING WHEN SHE HAS HAD NOVOLOG IN THE PAST insulin aspart protamine human (Verified Adverse Reaction, Intermediate, Shortness of Breath, 05/03/18) SHORTNESS OF BREATH AND ITCHING WHEN SHE HAS HAD NOVOLOG IN THE PAST insulin detemir (Verified Adverse Reaction, Intermediate, Shortness of Breath, 05/03/18) SHORTNESS OF BREATH AND ITCHING WHEN SHE HAS HAD NOVOLOG IN THE PAST insulin glargine (Verified Adverse Reaction, Intermediate, Shortness of Breath, 05/03/18) SHORTNESS OF BREATH AND ITCHING WHEN SHE HAS HAD NOVOLOG IN THE PAST insulin isophane (NPH) (Verified Adverse Reaction, Intermediate, Shortness of Breath, 05/03/18) SHORTNESS OF BREATH AND ITCHING WHEN SHE HAS HAD NOVOLOG IN THE PAST insulin lispro (Verified Adverse Reaction, Intermediate, Shortness of Breath, 05/03/18) SHORTNESS OF BREATH AND ITCHING WHEN SHE HAS HAD NOVOLOG IN THE PAST insulin regular (Verified Adverse Reaction, Intermediate, Shortness of Breath, 05/03/18) SHORTNESS OF BREATH AND ITCHING WHEN SHE HAS HAD NOVOLOG IN THE PAST shellfish derived (Verified Adverse Reaction, Mild, VOMITING/DIARRHEA, ) Family History ALS-father Social History Occasional alcohol use. Does not smoke or use illicit drugs. Lives with her sister Physical Exam Vital Signs Vital Signs Date Time Temp Pulse Resp B/P (MAP) Pulse Ox O2 Delivery O2 Flow Rate FiO2 05/03/18 08:23 98 18 05/03/18 07:57 98.2 107 16 120/72 (88) 96 Physical Exam GENERAL: This is a well-nourished, well-developed patient, in no apparent distress. SKIN: No rashes, ecchymoses or lesions. Cool and dry. Right knee slight erythema HEAD: Atraumatic. Normocephalic. No temporal or scalp tenderness. EYES: Pupils equal round and reactive. Extraocular motions intact. No scleral icterus. No injection or drainage. ENT: Nose without bleeding, purulent drainage or septal hematoma. Throat without erythema, tonsillar hypertrophy or exudate. Uvula midline. Airway patent. Edentulous NECK: Trachea midline. No JVD or lymphadenopathy. Supple, nontender, no meningeal signs. CARDIOVASCULAR: Regular rate and rhythm without murmurs, gallops, or rubs. RESPIRATORY: Clear to auscultation. Breath sounds equal bilaterally. No wheezes , rales, or rhonchi. GASTROINTESTINAL: Abdomen soft, non-tender, nondistended. No guarding. MUSCULOSKELETAL: Extremities without clubbing, cyanosis, or edema. Right knee slightly tender. No calf tenderness. Negative Homans sign bilaterally. NEUROLOGICAL: Awake and alert. Cranial nerves II through XII intact. Sensory grossly within normal limits. Five out of 5 muscle strength in UE muscle groups. She has weakness bilateral leg Muscles but able to raise slightly against resistance. DTR present. Babinski present. Patient unable to ambulate secondary to unsteady gait. Normal speech. Laboratory Laboratory Tests Test 05/03/18 08:50 White Blood Count 9.9 Red Blood Count 4.45 Hemoglobin 13.1 Hematocrit 39.4 Mean Corpuscular Volume 88.6 Mean Corpuscular Hemoglobin 29.5 Mean Corpuscular Hemoglobin Concent 33.3 Red Cell Distribution Width 14.3 Platelet Count 205 Mean Platelet Volume 9.3 Neutrophils (%) (Auto) 67.8 Lymphocytes (%) (Auto) 20.9 Monocytes (%) (Auto) 10.0 Eosinophils (%) (Auto) 1.0 Basophils (%) (Auto) 0.3 Neutrophils # (Auto) 6.7 Lymphocytes # (Auto) 2.1 Monocytes # (Auto) 1.0 Eosinophils # (Auto) 0.1 Basophils # (Auto) 0.0 CBC Comment DIFF FINAL Differential Comment Blood Urea Nitrogen 10 Creatinine 0.80 Random Glucose 428 Calcium Level 9.3 Sodium Level 136 Potassium Level 3.7 Chloride Level 98 Carbon Dioxide Level 25.7 Anion Gap 12 Estimat Glomerular Filtration Rate 72 Result Diagram: 05/03/18 0850 05/03/18 0850 Imaging Last Impressions Lumbar Spine CT 05/03/18 0000 Signed Impressions: CONCLUSION: 1. No compression fracture or spondylolisthesis. 2. Levocurvature. 3. Mild degenerative changes. 4. Multilevel disc bulges without canal stenosis. Knee X-Ray 05/03/18 0000 Signed Impressions: CONCLUSION: Mild osteoarthritis without fracture. Head CT 05/03/18 0000 Signed Impressions: CONCLUSION: 1. No acute intracranial abnormality Caprini VTE Risk Assessment Caprini VTE Risk Assessment: Mod/High Risk (score >= 2) Caprini Risk Assessment Model Point Value = 1 Point Value = 2 Point Value = 3 Point Value = 5 Age 41-60 Minor surgery BMI > 25 kg/m2 Swollen legs Varicose veins or History of unexplained or recurrent spontaneous Oral contraceptives or hormone replacement Sepsis (< 1 month) Serious lung disease, including pneumonia (< 1 month) Abnormal pulmonary function Acute myocardial infarction Congestive heart failure (< 1 month) History of inflammatory bowel disease Medical patient at bed rest Age 61-74 Arthroscopic surgery Major open surgery (> 45 min) Laparoscopic surgery (> 45 min) Malignancy Confined to bed (> 72 hours) Immobilizing plaster cast Central venous access Age >= 75 History of VTE Family history of VTE Factor V Leiden Prothrombin [id number] Lupus anticoagulant Anticardiolipin antibodies Elevated serum homocysteine Heparin-induced thrombocytopenia Other congenital or acquired thrombophilia Stroke (< 1 month) Elective arthroplasty Hip, pelvis, or leg fracture Acute spinal cord injury (< 1 month) Prophylaxis Regimen Total Risk Factor Score Risk Level Prophylaxis Regimen 0-1 Low Early ambulation 2 Moderate Order ONE of the following: *Sequential Compression Device (SCD) *Heparin 5000 units SQ BID 3-4 Higher Order ONE of the following medications: *Heparin 5000 units SQ TID *Enoxaparin/Lovenox 40 mg SQ daily (WT < 150 kg, CrCl > 30 mL/min) *Enoxaparin/Lovenox 30 mg SQ daily (WT < 150 kg, CrCl > 10-29 mL/min) *Enoxaparin/Lovenox 30 mg SQ BID (WT < 150 kg, CrCl > 30 mL/min) AND/OR *Sequential Compression Device (SCD) 5 or more Highest Order ONE of the following medications: *Heparin 5000 units SQ TID (Preferred with Epidurals) *Enoxaparin/Lovenox 40 mg SQ daily (WT < 150 kg, CrCl > 30 mL/min) *Enoxaparin/Lovenox 30 mg SQ daily (WT < 150 kg, CrCl > 10-29 mL/min) *Enoxaparin/Lovenox 30 mg SQ BID (WT < 150 kg, CrCl > 30 mL/min) AND *Sequential Compression Device (SCD) Assessment and Plan Assessment and Plan This is a 68-year-old female who presents to the emergency department complaining of inability to walk. Patient reports that for the past month she has been having problems with her knees giving out. Last night, she was unable to get up and ambulate because of her knees giving out. She had several falls and complains of bilateral elbow and knee pain. She also hit her head but denies loss of consciousness. She denies neck pain, unilateral weakness, fever , chills, insect bites, rash, nausea, difficulty swallowing, shortness of breath , chest pain, UTI symptoms, diarrhea, numbness and incontinence. Denies taking any new medicine. States she has chronic lower back pain. ER workup is unrevealing which included head CT, lumbar spine CT and bilateral knee x-rays. Bilateral lower extremity weakness etiology to be determined. Discussed with neurology, possible myelopathy will obtain MRI of the cervical and thoracic spine. Patient states she has stent which is MRI conditional and will discuss with neurology. If unable, will obtain CT scan. Obtain urinalysis, TSH, CK and ESR. Doubt GBS. Start NS at 60 cc/hr. Consult physical therapy. Fall precautions Multiple medical conditions of coronary artery disease status post stent in 2015 , diabetes mellitus,hypertension, hyperlipidemia fibromyalgia and depression. Continue outpatient medications as appropriate. Monitor fingersticks with sliding scale coverage. States she is allergic to one type of insulin unable to recall. She was able to tolerate Novolin insulin in 2014 when she received cardiac stent. DVT prophylaxis with SCD and hold pharmacological prophylaxis may need lumbar puncture Discussed Condition With pt and sister Dillon Abad MD May 03, 2018 12:22
[2018-05-03] MEDS: INSULIN NovoLIN REGULAR SUPPLEMENTAL SCALE SQ SCH ×3 (12:36→21:28)
[2018-05-03] MEDS: CARVEDILOL 3.125 MG TAB PO SCH ×2 (12:36→21:28)
[2018-05-03] MEDS: PREGABALIN 75 MG CAP PO SCH ×2 (12:37→18:22)
[2018-05-03] MEDS: GABAPENTIN 300 MG CAP PO SCH ×2 (12:37→18:22)
[2018-05-03] MEDS: SODIUM CHLOR 0.9% 1000 ML INJ 1,000 ML IV SCH (12:37)
[2018-05-03] MEDS ORDERED: PILL SPLITTER OTHER PRN (13:00)
[2018-05-03] MEDS ORDERED: GADODIAMIDE PF 287 MG/ML 20 ML VIAL (for RAD MRI) IVCONTRAST ONE (13:51)
--- NOTE | 2018-05-03 14:01 | RADRPT ---
EXAM DATE: 05/03/2018 1:54 PM EDT AGE/SEX: 68 years / Female INDICATIONS: Inability to ambulate. CLINICAL DATA: This is the patient's initial encounter. Patient reports that signs and symptoms have been present for 1 day and indicates a pain score of 0/10. MEDICAL/SURGICAL HISTORY: Carcinoma, breast. Diabetes mellitus type II. Coronary artery stent. Hysterectomy. Breast lumpectomy. Lymph node removal. COMPARISON: No prior exams available for comparison. TECHNIQUE: Multiplanar, multisequence MRI of the thoracic spine was performed without and with 12 ml Omniscan (gadodiamide) contrast as a single exam dose. FINDINGS: Vertebrae: Normal vertebral body height. Homogeneous marrow signal. Diffuse mild degenerative lama es. Diffuse disc desiccation. Vertebral body hemangioma at T11 Alignment: Normal. Cord: There is prominent central T2 signal abnormality throughout the cord but greatest from T8 to T 11. Post Contrast: No abnormal areas of enhancement are seen in the cord, dural or paraspinal regions. T1-T2: The thecal sac has a normal diameter. No evidence of disc bulge or protrusion. T2-T3: The thecal sac has a normal diameter. No evidence of disc bulge or protrusion. T3-T4: The thecal sac has a normal diameter. No evidence of disc bulge or protrusion. T4-T5: The thecal sac has a normal diameter. No evidence of disc bulge or protrusion. T5-T6: The thecal sac has a normal diameter. No evidence of disc bulge or protrusion. T6-T7: Small central protrusion abuts the ventral thecal sac. There is flattening of the spinal cord . No canal stenosis T7-T8: The thecal sac has a normal diameter. No evidence of disc bulge or protrusion. T8-T9: The thecal sac has a normal diameter. No evidence of disc bulge or protrusion. T9-T10: The thecal sac has a normal diameter. No evidence of disc bulge or protrusion. T10-T11: The thecal sac has a normal diameter. No evidence of disc bulge or protrusion. T11-T12: The thecal sac has a normal diameter. No evidence of disc bulge or protrusion. T12-L1: The thecal sac has a normal diameter. No evidence of disc bulge or protrusion. CONCLUSION: 1. T2 signal throughout the central cord but greatest from T8 to T11 could be related to prominence of the central canal versus syrinx. 2. Small central protrusion at T6-7 without canal stenosis. 3. No compression fracture or spondylolisthesis. Electronically signed by: Adria Moreno MD 05/03/2018 2:00 PM EDT
[2018-05-03] MEDS: traMADol HCL 50 MG TAB PO PRN (15:37)
[2018-05-03 17:22] LABS: BACTERIA, URINE OCC /hpf; BILIRUBIN, URINE NEG (NEG); BLOOD, URINE NEG (NEG); GLUCOSE,URINE >=500 mg/dL (NEG); HYALINE CAST, URINE 1 /lpf (RARE); KETONE, URINE TRACE mg/dL (NEG); NITRITE,URINE NEG (NEG); SQUAMOUS EPITHELIAL CELL URINE 1 /hpf (0-5); URINE COLOR YELLOW (YELLW/STRAW); URINE LEUKOCYTE ESTERASE TRACE (NEG)
[2018-05-03] MEDS ORDERED: MELATONIN 5 MG TAB PO PRN (17:45)
--- NOTE | 2018-05-03 18:55 | RADRPT ---
EXAM DATE: 05/03/2018 1:56 PM EDT AGE/SEX: 68 years / Female INDICATIONS: Inability to ambulate. CLINICAL DATA: This is the patient's initial encounter. Patient reports that signs and symptoms have been present for 1 day and indicates a pain score of 0/10. MEDICAL/SURGICAL HISTORY: Carcinoma, breast. Diabetes mellitus type II. Hysterectomy. Coronar y artery stent. COMPARISON: No prior exams available for comparison. TECHNIQUE: Multiplanar, multisequence MRI examination of the cervical spine was performed without an d with 12 ml Omniscan (gadodiamide) contrast as a single exam dose. FINDINGS: There is mild degenerative disc disease in the cervical spine with minimal posterior osteophytic ridg ing at C5-C6 partially effacing the anterior thecal sac. No significant canal stenosis. No cord impin gement or direct nerve root compression identified. Is normal alignment. No cord signal abnormality. No prevertebral soft tissue swelling. CONCLUSION: 1. No acute findings. No cord compression or cord signal abnormality. Mild degenerative disc disease . Electronically signed by: Ramos Brown MD 05/03/2018 6:54 PM EDT
[2018-05-03] MEDS ORDERED: metFORMIN HCL 500 MG TAB PO SCH (21:00)
[2018-05-03] MEDS ORDERED: NON-FORMULARY DRUG (Sitagliptin-Metformin (Janumet) 1 TAB) PO SCH (21:00)
[2018-05-03] MEDS: SODIUM CHLORIDE 0.9% FLUSH 10 ML FLUSH IV FLUSH SCH (21:00)
[2018-05-03] MEDS: ATORVASTATIN 80 MG TAB PO SCH (21:28)
[2018-05-03] MEDS: DOCUSATE SODIUM 50 MG/SENNA 8.6 MG TAB PO SCH (21:28)
[2018-05-04] VITALS (9 sets, daily range): BP systolic 110–155; BP diastolic 69–80; PULSE 92–107; RESP 16–18; TEMP 98–99.1; O2SAT 94–96
[2018-05-04] MEDS: SODIUM CHLOR 0.9% 1000 ML INJ 1,000 ML IV SCH (04:37)
--- NOTE | 2018-05-04 07:48 | HHI.PR ---
Subjective Remarks Pt seen and examined for f/u of LE weakness. She states that today she feels normal and is able to walk. Her weakness has come and gone throughout the past month or so. She denies any involvement of her upper extremities or respiratory compromise. She denies visual changes, headache, paresthesias, or slurred speech. She denies any recent infection, immunization, or travel in the past six months. She endorses pain in her bilateral knees. She states tramadol is not helping. Objective Vital Signs Date Time Temp Pulse Resp B/P (MAP) Pulse Ox O2 Delivery O2 Flow Rate FiO2 05/04/18 07:09 98.0 92 16 128/78 (95) 94 05/04/18 04:09 98.6 92 18 128/73 (91) 94 05/04/18 00:14 98.6 93 16 136/80 (98) 95 05/03/18 20:11 98.7 18 146/76 (99) 93 05/03/18 19:54 95 05/03/18 18:36 98 05/03/18 15:40 98.0 78 17 130/68 (88) 99 05/03/18 13:37 18 05/03/18 12:10 98.0 86 17 133/82 (99) 99 Room Air 05/03/18 12:05 21 05/03/18 11:33 18 05/03/18 10:00 97.8 96 18 118/77 (91) 99 Room Air 05/03/18 08:23 98 18 05/03/18 07:57 98.2 107 16 120/72 (88) 96 I/O 05/03/18 05/03/18 05/03/18 05/04/18 05/04/18 05/04/18 07:00 15:00 23:00 07:00 15:00 23:00 Intake Total 300 ml Balance 300 ml Intake Oral 300 ml # Voids 1 1 # Bowel Movements 0 Result Diagram: 05/03/18 0850 05/03/18 0850 Imaging Thoracic Spine MRI 05/03/18 0000 Signed Impressions: CONCLUSION: 1. T2 signal throughout the central cord but greatest from T8 to T11 could be related to prominence of the central canal versus syrinx. 2. Small central protrusion at T6-7 without canal stenosis. 3. No compression fracture or spondylolisthesis. Lumbar Spine CT 05/03/18 Signed Impressions: CONCLUSION: 1. No compression fracture or spondylolisthesis. 2. Levocurvature. 3. Mild degenerative changes. 4. Multilevel disc bulges without canal stenosis. Knee X-Ray 05/03/18 Signed Impressions: CONCLUSION: Mild osteoarthritis without fracture. Head CT 05/03/18 Signed Impressions: CONCLUSION: 1. No acute intracranial abnormality Cervical Spine MRI 05/03/18 Signed Impressions: CONCLUSION: 1. No acute findings. No cord compression or cord signal abnormality. Mild deg enerative disc disease. Objective Remarks GENERAL: WN, WD female resting in bed in NAD. SKIN: Warm and dry. HEENT: AT/NC. Pupils equal and round. MMM. NECK: Supple no tender LAD or JVD. HEART: RRR no m/r/g. LUNGS: CTAB without wheezes or crackles. ABDOMEN: +BS, soft, NT, ND. EXTREMITIES: No LE edema. 2+ pedal pulses. Bilateral knees diffusely tender with minimal palpation; no effusion. NEURO: Awake and alert. 5/5 UE and LE strength. Sensation intact. PSYCH: Appropriate mood and affect. A/P Assessment and Plan 68 YOWF with CAD, DM, HTN, HLD, depression, chronic low back pain, and history of breast cancer admitted on 05/03 because her legs have been progressively giving out over the last month to the point where she was unable to ambulate. 1. Bilateral LE weakness - One month duration of "knees giving out," falling, inability to ambulate - ESR, total CK, and TSH WNL - C-spine MRI showing no acute findings other than degenerative disc disease - L-spine CT showing mild degenerative changes along with multilevel disc bulges without canal stenosis - T-spine MRI showing T2 signalling throughout the central cord but greatest from T8-T11 which could be related to prominence of the central canal verus syrinx - MRI brain unremarkable - Neurology consulted for further eval; ordering MRI of the spine with contrast to r/o cord tumor - Neurosurgery consulted for thoracic syrinx 2. Diabetes mellitus with hyperglycemia - Hold home metformin - Continue Januvia - SSI with Accuchecks per protocol - Check A1c 3. Hypertension - Appears to be well-controlled - Resume home Carvedilol and Lisinopril 4. Coronary artery disease - Continue Plavix 5. Depression - Continue home Sertraline 6. Fibromyalgia, chronic back pain - Continue home Lyrica and Baclofen 7. Hyperlipidemia - Continue home atorvastatin 8. Knee pain - XRs negative for fracture - Tramadol not helping - Comstock PRN - Toradol for breakthrough DVT prophylaxis: Latha Lucero MD May 04, 2018 07:48
--- NOTE | 2018-05-04 08:21 | RADRPT ---
EXAM DATE: 05/04/2018 8:14 AM EDT AGE/SEX: 68 years / Female INDICATIONS: Inability to ambulate. Chiari malformation, abnormal thoracic spine MRI. CLINICAL DATA: This is the patient's initial encounter. Patient reports that signs and symptoms have been present for 2 days and indicates a pain score of 0/10. MEDICAL/SURGICAL HISTORY: Carcinoma, breast. Diabetes mellitus type II. Hysterectomy. Breast l umpectomy, Lymph node removal COMPARISON: No prior exams available for comparison. TECHNIQUE: Multiplanar, multisequence examination of the brain was performed without and with 12 ml O mniscan (gadodiamide) contrast as a single exam dose. FINDINGS: Cerebrum: The ventricles are normal for age. No evidence of midline shift, mass lesion, hemorrhage or acute infarction. No extraaxial fluid collections are seen. The pituitary gland and suprasellar cistern are normal in configuration. White Matter: No significant signal abnormalities are seen in the white matter. Posterior Fossa: The cerebellum and brainstem are intact. The 4th ventricle is midline. The cerebel lopontine angle is unremarkable. The cerebellar tonsils are normal in position. Diffusion Imaging: No focal areas of restricted diffusion are seen. No evidence of acute infarction . Extracranial: The visualized portions of the orbits and paranasal sinuses are unremarkable. Post Contrast: No abnormal areas of parenchymal or dural enhancement. No evidence of blood-brain ba rrier breakdown. CONCLUSION: 1. Unremarkable MRI of the brain. 2. No acute infarction. Electronically signed by: Adria Moreno MD 05/04/2018 8:19 AM EDT
--- NOTE | 2018-05-04 08:35 | MB ---
cc: Bernardo Luna MD, PhD DATE: 05/03/2018 REASON FOR CONSULTATION: Lower extremity weakness. HISTORY OF PRESENT ILLNESS: This is a very nice 68-year-old woman who for the past month has had trouble with weakness of her legs. This got worse over the past night ,such that she had difficulty ambulating, with her legs giving way. Denies any bladder incontinence or lower extremity numbness. Denies any back trauma. PAST MEDICAL HISTORY: Hysterectomy. MEDICINES AT HOME: Janumet, Victoza, gabapentin, Lyrica, Carvedilol, baclofen, sertraline, Plavix, lisinopril, atorvastatin. ALLERGIES: ASPIRIN, LEVOFLOXACIN, INSULIN. NEUROLOGIC EXAMINATION: Higher cortical functions are normal. Cranial nerves intact. Motor exam is 5/5 strength in both upper extremities. She is weak at the iliopsoas, 4/5 symmetric. Quads are 5/5 symmetric. Hamstring 4/5 symmetric. Tibia anterior and gastrocnemius groups 5/5, symmetric. Sensory exam intact. Reflexes are 2+ symmetric with equivocal Babinski's. IMAGING STUDIES: CT brain is normal. MRI cervical spine: Mild spondylosis, but no cord abnormality and no cord compression. Lumbar spine CT: No compression fracture. Mild arthritic changes. No significant stenosis. Thoracic spine MRI shows a cord abnormality with what appears to be a syrinx from T8-T11. 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 RECOMMENDATION: I would like to get an MRI spine with contrast to rule out cord tumor. Also, MRI brain to rule out Arnold-Chiari malformation. We will also obtain neurosurgical evaluation. ADDENDUM: Since the original dictation, I reviewed the MRI studies. They were in fact done with and without contrast. There is no abnormal contrast enhancement in the cervical or thoracic spine. No evidence of cord tumor. Therefore, additional studies are not indicated. We will still proceed with a brain MRI to rule out Arnold-Chiari malformation. Bernardo Luna MD, PhD IRINEO/RASHAD , 09:00 PM , 08:33 AM
[2018-05-04] MEDS: PREGABALIN 75 MG CAP PO SCH ×3 (08:38→18:09)
[2018-05-04] MEDS: SERTRALINE HCL 50 MG TAB PO SCH (08:38)
[2018-05-04] MEDS: GABAPENTIN 300 MG CAP PO SCH ×3 (08:38→18:09)
[2018-05-04] MEDS: LISINOPRIL 5 MG TAB PO SCH (08:39)
[2018-05-04] MEDS: traMADol HCL 50 MG TAB PO PRN (08:39)
[2018-05-04] MEDS: CARVEDILOL 3.125 MG TAB PO SCH ×2 (08:40→20:45)
[2018-05-04] MEDS: SODIUM CHLORIDE 0.9% FLUSH 10 ML FLUSH IV FLUSH SCH ×2 (08:40→20:42)
[2018-05-04] MEDS: DOCUSATE SODIUM 50 MG/SENNA 8.6 MG TAB PO SCH ×2 (08:41→20:34)
[2018-05-04] MEDS: INSULIN NovoLIN REGULAR SUPPLEMENTAL SCALE SQ SCH ×4 (08:41→20:45)
[2018-05-04] MEDS: CLOPIDOGREL 75 MG TAB PO SCH (08:41)
[2018-05-04] MEDS ORDERED: VICTOZA 1.8 MG SQ SCH (09:00)
[2018-05-04] MEDS ORDERED: LIRAGLUTIDE 1.2 MG SQ SCH (09:00)
[2018-05-04] MEDS ORDERED: KETOROLAC TROMETHAMINE 30 MG/ML (IVP) VIAL IV PUSH PRN (10:30)
[2018-05-04] MEDS ORDERED: ACETAMINOPHEN/HYDROcodone 325 MG/5 MG TAB PO PRN (10:30)
--- NOTE | 2018-05-04 12:46 | PD.CONS ---
[facility] Service Neurosurgery Consult Requested By Dr Luna Reason for Consult thoracic syrinx Primary Care Physician Unknown History of Present Illness This is a 68-year-old female with history of breast cancer, status post surgery , chemo and radiation therapy, diabetes mellitus, hypertension, hyperlipidemia, fibromyalgia, , coronary artery disease status post stent in 2015, and depression who presents to the emergency department complaining of knee pain and inability to walk. She reports that for the past month she has been having problems with her knees, with severe pain and her knees giving out. On Saturday she was unable to get up and ambulate because of her knees giving out. She had suffered several falls and reports severe bilateral elbow and knee pain. She also struck her head during a fall but she denies loss of consciousness. No seizure activity reported. No tongue biting. No tonic- clonic movements. No incontinence of stool or urine. She denies neck pain,, focal unilateral weakness, fever, chills, insect bites, rash, nausea, difficulty swallowing, shortness of breath, chest pain, Denies diarrhea, numbness and incontinence. Denies taking any new medicine. States she has chronic low back pain. She underwent an MRI of the brain, cervical thoracic and lumbar spine. She was found to have a syrinx in the thoracic spine. Neurosurgical consultation was requested Review of Systems Constitutional: DENIES: Diaphoretic episodes, Fatigue, Fever, Weight gain, Weight loss, Chills, Dizziness, Change in appetite, Night Sweats Endocrine: DENIES: Abnorml menstrual pattern, Heat/cold intolerance, Polydipsia , Polyuria, Polyphagia Eyes: DENIES: Blurred vision, Diplopia, Eye inflammation, Eye pain, Vision loss , Photosensitivity, Double Vision Ears, nose, mouth, throat: DENIES: Tinnitus, Hearing loss, Vertigo, Nasal discharge, Oral lesions, Throat pain, Hoarseness, Ear Pain, Running Nose, Epistaxis, Sinus Pain, Toothache, Odynophagia Respiratory: DENIES: Apneas, Cough, Snoring, Wheezing, Hemoptysis, Sputum production, Shortness of breath Cardiovascular: DENIES: Chest pain, Palpitations, Syncope, Dyspnea on Exertion , PND, Lower Extremity Edema, Orthopnea, Claudication Gastrointestinal: DENIES: Abdominal pain, Black stools, Bloody stools, Constipation, Diarrhea, Nausea, Vomiting, Difficulty Swallowing, Anorexia Genitourinary: DENIES: Abnormal vaginal bleeding, Dysmenorrhea, Dyspareunia, Sexual dysfunction, Urinary frequency, Urinary incontinence, Urgency, Hematuria , Dysuria, Nocturia, Vaginal discharge Musculoskeletal: COMPLAINS OF: Joint pain, Back pain, DENIES: Muscle aches, Stiffness, Joint Swelling, Neck pain Integumentary: DENIES: Abnormal pigmentation, Pruritus, Rash, Nail changes, Breast masses, Breast skin changes, Nipple discharge Hematologic/lymphatic: DENIES: Bruising, Lymphadenopathy Immunologic/allergic: DENIES: Eczema, Urticaria Neurologic: DENIES: Abnormal gait, Headache, Localized weakness, Paresthesias, Seizures, Speech Problems, Tremor, Poor Balance Psychiatric: DENIES: Anxiety, Confusion, Mood changes, Depression, Hallucinations, Agitation, Suicidal Ideation, Homicidal Ideation, Delusions Past Family Social History Allergies: Coded Allergies: aspirin (Verified Allergy, Severe, Anaphylaxis, 05/03/18) levofloxacin (Verified Allergy, Severe, Anaphylaxis, 05/03/18) insulin aspart (Unverified Adverse Reaction, Intermediate, Shortness of Breath, 06/25/17) SHORTNESS OF BREATH AND ITCHING WHEN SHE HAS HAD NOVOLOG IN THE PAST insulin aspart protamine human (Verified Adverse Reaction, Intermediate, Shortness of Breath, 05/03/18) SHORTNESS OF BREATH AND ITCHING WHEN SHE HAS HAD NOVOLOG IN THE PAST insulin detemir (Verified Adverse Reaction, Intermediate, Shortness of Breath, 05/03/18) SHORTNESS OF BREATH AND ITCHING WHEN SHE HAS HAD NOVOLOG IN THE PAST insulin glargine (Verified Adverse Reaction, Intermediate, Shortness of Breath, 05/03/18) SHORTNESS OF BREATH AND ITCHING WHEN SHE HAS HAD NOVOLOG IN THE PAST insulin isophane (NPH) (Verified Adverse Reaction, Intermediate, Shortness of Breath, 05/03/18) SHORTNESS OF BREATH AND ITCHING WHEN SHE HAS HAD NOVOLOG IN THE PAST insulin lispro (Verified Adverse Reaction, Intermediate, Shortness of Breath, 05/03/18) SHORTNESS OF BREATH AND ITCHING WHEN SHE HAS HAD NOVOLOG IN THE PAST insulin regular (Verified Adverse Reaction, Intermediate, Shortness of Breath, 05/03/18) SHORTNESS OF BREATH AND ITCHING WHEN SHE HAS HAD NOVOLOG IN THE PAST shellfish derived (Verified Adverse Reaction, Mild, VOMITING/DIARRHEA, ) Past Medical History breast cancer, status post surgery, chemo and radiation therapy, diabetes mellitus, arterial hypertension, hyperlipidemia, fibromyalgia rheumatica, , coronary artery disease status post stent in 2015, depression Past Surgical History Total abdominal hysterectomy Resection of breast carcinoma Coronary artery stent Reported Medications Victoza Inj (Liraglutide Inj) 18 Mg/3 Ml Pen 1.8 Mg SQ DAILY Janumet (Sitagliptin-Metformin) 50-1,000 Mg Tab 1 Tab PO BID Gabapentin 600 Mg Tab 600 Mg PO TID Lyrica (Pregabalin) 75 Mg Cap 75 Mg PO TID Carvedilol 3.125 Mg Tab 3.125 Mg PO BID Baclofen 10 Mg Tab 10 Mg PO HS PRN Sertraline (Sertraline HCl) 50 Mg Tab 50 Mg PO DAILY Clopidogrel (Clopidogrel Bisulfate) 75 Mg Tab 75 Mg PO DAILY Atorvastatin (Atorvastatin Calcium) 80 Mg Tab 80 Mg PO HS Lisinopril 2.5 Mg Tab 2.5 Mg PO DAILY Active Ordered Medications Current Medications Oxycodone/ Acetaminophen (Percocet 5-325 Mg) 1 tab ONCE ONCE PO Last administered on 05/03/18at 10:33; Start 05/03/18 at 10:30; Stop 05/03/18 at 10:31 ; Status DC Dextrose (D50w (Vial) Inj) 50 ml UNSCH PRN IV PUSH HYPOGLYCEMIA-SEE COMMENTS; Start 05/03/18 at 11:45 Glucagon (Glucagon Inj) 1 mg UNSCH PRN OTHER HYPOGLYCEMIA-SEE COMMENTS; Start 05/03/18 at 11:45 Insulin Aspart (NovoLOG SUPPLEMENTAL SCALE) 1 ACHS SLIDING SCALE SQ ; Start at 12:00; Stop 05/03/18 at 12:01; Status DC Atorvastatin Calcium (Lipitor) 80 mg HS PO Last administered on 05/03/18at 21:28 ; Start 05/03/18 at 21:00 Baclofen (Lioresal) 10 mg HS PRN PO MUSCLE SPASM; Start 05/03/18 at 11:45 Carvedilol (Coreg) 3.125 mg BID PO Last administered on 05/04/18at 08:40; Start 05/03/18 at 11:45 Clopidogrel Bisulfate (Plavix) 75 mg DAILY PO Last administered on 05/04/18at 08 :41; Start 05/04/18 at 09:00 Gabapentin (Neurontin) 1,200 mg TID PO Last administered on 05/04/18at 08:38; Start 05/03/18 at 13:00 Pregabalin (Lyrica) 75 mg TID PO Last administered on 05/04/18at 08:38; Start at 13:00 Sertraline HCl (Zoloft) 50 mg DAILY PO Last administered on 05/04/18at 08:38; Start 05/04/18 at 09:00 Tramadol HCl (Ultram) 50 mg BID PRN PO PAIN 3-10 Last administered on at 08:39; Start 05/03/18 at 11:45; Stop 05/04/18 at 10:18; Status DC Non-Formulary Medication 1.2 mg DAILY SQ ; Start 05/04/18 at 09:00; Stop at 09:00; Status DC Lisinopril (Prinivil) 2.5 mg DAILY PO Last administered on 05/04/18at 08:39; Start 05/04/18 at 09:00 Non-Formulary Medication 1 tab BID PO ; Start 05/03/18 at 21:00; Stop 05/03/18 at 21:00; Status DC Sodium Chloride 1,000 ml @ 60 mls/hr [id number] IV Last administered on at 12:37; Start 05/03/18 at 11:57 Sodium Chloride (NS Flush) 2 ml UNSCH PRN IV FLUSH FLUSH AFTER USING IV ACCESS ; Start 05/03/18 at 12:00 Sodium Chloride (NS Flush) 2 ml BID IV FLUSH ; Start 05/03/18 at 21:00 Acetaminophen (Tylenol) 650 mg Q4H PRN PO TEMP > 100.4; Start 05/03/18 at 12:00 Acetaminophen (Tylenol) 650 mg Q6H PRN PO PAIN SCALE 1 TO 2; Start 05/03/18 at 12:00 Naloxone HCl (Narcan Inj) 0.4 mg UNSCH PRN IV PUSH SEE LABEL COMMENTS; Start at 12:00 Senna/Docusate Sodium (Charlette-Colace) 1 tab BID PO Last administered on at 21:28; Start 05/03/18 at 21:00 Magnesium Hydroxide (Milk Of Magnesia Liq) 30 ml Q12H PRN PO Mild constipation ; Start 05/03/18 at 12:00 Sennosides (Senokot) 17.2 mg Q12H PRN PO Moderate constipation Last administered on 05/03/18at 18:22; Start 05/03/18 at 12:00 Bisacodyl (Dulcolax Supp) 10 mg DAILY PRN RECTAL SEVERE CONSITIPATION; Start at 12:00 Lactulose (Lactulose Liq) 30 ml DAILY PRN PO SEVERE CONSITIPATION; Start at 12:00 Patient Own Medication PT OWN MED: VICT... DAILY SQ ; Start 05/04/18 at 09:00; Status Future Hold Insulin Human Regular (NovoLIN R SUPPLEMENTAL SCALE) 1 ACHS SLIDING SCALE SQ Last administered on 05/04/18at 08:41; Start 05/03/18 at 12:00 Sitagliptin Phosphate (Januvia) 50 mg BID PO Last administered on 05/04/18at 08: 39; Start 05/03/18 at 21:00 Metformin HCl (Glucophage) 1,000 mg BID PO Last administered on 05/03/18at 21:28 ; Start 05/03/18 at 21:00; Status Future Hold Miscellaneous (Pill Splitter) 1 ea UNSCH PRN OTHER SEE LABEL COMMENTS; Start at 13:00 Gadodiamide (Omniscan Pf Inj) 12 ml STK-MED ONCE IVCONTRAST Last administered on 05/03/18at 13:51; Start 05/03/18 at 13:51; Stop 05/03/18 at 13:52; Status DC Melatonin (Melatonin) 5 mg HS PRN PO insomnia; Start 05/03/18 at 17:45 Enoxaparin Sodium (Lovenox Inj) 40 mg Q24H SQ ; Start 05/04/18 at 18:00 Gadodiamide (Omniscan Pf Inj) 12 ml STK-MED ONCE IVCONTRAST Last administered on 05/03/18at 11:18; Start 05/03/18 at 11:18; Stop 05/04/18 at 08:02; Status DC Acetaminophen/ Hydrocodone Bitart ([place] 5-325 Mg) 1 tab Q4H PRN PO PAIN 5-10 ; Start 05/04/18 at 10:30 Ketorolac Tromethamine (Toradol Inj) 15 mg Q6H PRN IV PUSH BREAKTHROUGH PAIN; Start 05/04/18 at 10:30; Stop 05/04/18 at 10:46; Status DC Family History Her father suffered from ALS. Otherwise family history was reviewed and noncontributory to her current admission Social History Occasional alcohol use. Does not smoke or use illicit drugs. Lives with her sister Physical Exam Vital Signs Vital Signs Date Time Temp Pulse Resp B/P (MAP) Pulse Ox O2 Delivery O2 Flow Rate FiO2 05/04/18 11:20 98.0 93 16 119/69 (86) 94 05/04/18 08:48 92 05/04/18 07:09 98.0 92 16 128/78 (95) 94 05/04/18 04:09 98.6 92 18 128/73 (91) 94 05/04/18 00:14 98.6 93 16 136/80 (98) 95 05/03/18 20:11 98.7 18 146/76 (99) 93 05/03/18 19:54 95 05/03/18 18:36 98 05/03/18 15:40 98.0 78 17 130/68 (88) 99 05/03/18 13:37 18 05/03/18 12:10 98.0 86 17 133/82 (99) 99 Room Air 05/03/18 12:05 21 Physical Exam GENERAL: Ms Rose is well-nourished, well-developed patient, in no apparent distress. SKIN: No rashes, ecchymoses or lesions. Cool and dry. Right knee slight erythema HEAD: Atraumatic. Normocephalic. No temporal or scalp tenderness. EYES: Pupils equal round and reactive. Extraocular motions intact. No scleral icterus. No injection or drainage. ENT: Nose without bleeding, purulent drainage or septal hematoma. Throat without erythema, tonsillar hypertrophy or exudate. Uvula midline. Airway patent. Edentulous NECK: Trachea midline. No JVD or lymphadenopathy. Supple, nontender, no meningeal signs. CARDIOVASCULAR: Regular rate and rhythm without murmurs, gallops, or rubs. RESPIRATORY: Clear to auscultation. Breath sounds equal bilaterally. No wheezes , rales, or rhonchi. GASTROINTESTINAL: Abdomen soft, non-tender, nondistended. No guarding. MUSCULOSKELETAL: Extremities without clubbing, cyanosis, or edema. Right knee slightly tender. No calf tenderness. Negative Homans sign bilaterally. NEUROLOGICAL: She is alert, awake and oriented to time, place and person. Speech is fluent. Cranial nerve examination: pupils to be equal, round and reactive to light. Extra-ocular movements are intact. Facial motor and sensory function are normal and symmetrical. Gross hearing appears intact. Sternocleidomastoid and trapezius muscles are symmetrical. Other cranial nerves are intact. Neck is soft and supple with a good range of motion without pain. Muscle strength is 5/5 strength in both upper extremities. She has iliopsoas, 4/5, Quadriceps are 5/5. Hamstrings 4+/5, Tibialis anterior and gastrocnemius groups 5/5, symmetric. Sensory examination is intact to light touch and pin prick in both the upper and lower extremities. Deep tendon reflexes are 2+ symmetrical in both upper and lower extremities. There is a withdraw response to plantar stimulation Cerebellar examination is unremarkable Laboratory Laboratory Tests Test 05/03/18 16:25 05/04/18 06:30 05/04/18 10:40 Urine Color YELLOW Urine Turbidity HAZY Urine pH 5.0 Urine Specific [place] 1.039 Urine Protein NEG Urine Glucose (UA) >=500 Urine Ketones TRACE Urine Occult Blood NEG Urine Nitrite NEG Urine Bilirubin NEG Urine Urobilinogen LESS THAN 2 Urine Leukocyte Esterase TRACE Urine RBC LESS THAN 1 Urine WBC 23 Urine Squamous Epithelial Cells 1 Urine Bacteria OCC Urine Hyaline Casts 1 Microscopic Urinalysis Comment CULTURE INDICATED Total Creatine Kinase 56 Date/Time Source Procedure Growth Status 05/03/18 16:25 Urine Clean Catch Urine Culture - Preliminary IMMATURE GROWTH - REINCUBATE Resulted Result Diagram: 05/03/18 0850 05/03/18 0850 Attending Statement I reviewed multiple radiological studies including Lumbar Spine CT 05/03/18 0000 Signed Impressions: CONCLUSION: 1. No compression fracture or spondylolisthesis. 2. Levocurvature. 3. Mild degenerative changes. 4. Multilevel disc bulges without canal stenosis. Knee X-Ray 05/03/18 0000 Signed Impressions: CONCLUSION: Mild osteoarthritis without fracture. Head CT 05/03/18 Signed Impressions: CONCLUSION: 1. No acute intracranial abnormality Brain MRI 05/04/18 Signed Impressions: CONCLUSION: 1. Unremarkable MRI of the brain. 2. No acute infarction. Thoracic Spine MRI 05/03/18 Signed Impressions: CONCLUSION: 1. T2 signal throughout the central cord but greatest from T8 to T11 could be related to prominence of the central canal versus syrinx. 2. Small central protrusion at T6-7 without canal stenosis. 3. No compression fracture or spondylolisthesis. Lumbar Spine CT 05/03/18 Signed Impressions: CONCLUSION: 1. No compression fracture or spondylolisthesis. 2. Levocurvature. 3. Mild degenerative changes. 4. Multilevel disc bulges without canal stenosis. Knee X-Ray 05/03/18 Signed Impressions: CONCLUSION: Mild osteoarthritis without fracture. Knee X-Ray 05/03/18 Signed Impressions: CONCLUSION: Mild osteoarthritis without fracture. Head CT 05/03/18 Signed Impressions: CONCLUSION: 1. No acute intracranial abnormality Cervical Spine MRI 05/03/18 Signed Impressions: CONCLUSION: 1. No acute findings. No cord compression or cord signal abnormality. Mild deg enerative disc disease. I review her clinical findings and radiological studies. She has a small, incidental syrinx in the thoracic spine which is unrelated to her symptoms. This is rather an incidental finding which does not require surgical intervention An MRI of the brain is unremarkable. She does not have clinical evidence of myelopathy Bilateral lower extremity weakness workup in progress including urinalysis, TSH , CK and ESR. Doubt GBS. It could also be a side effect of her medications Recommend Orthopedic evaluation of her knees, as it could be related to a knee condition Consult physical therapy. Coronary artery disease status post stent in 2014. Continue home meds Diabetes mellitus. Monitor Accu-Cheks and insulin sliding scale as needed Arterial hypertension. Monitor her and treat as needed. Resume home meds Hyperlipidemia. Continue home meds depression. Continue Sertraline, outpatient medications as appropriate Fibromyalgia reumatica. Continue lyrica Continue pulmonary toilette, nasotracheal suction, and breathing treatments with nebulizers. Renal. Monitor closely urine output, BUN and creatinine ID monitor for signs of infection Protonix for stress ulcer prophylaxis Kelvin hose and SCD's for DVT prophylaxis Caprini VTE Risk Assessment Caprini VTE Risk Assessment Caprini VTE Risk Assessment: Mod/High Risk (score >= 2) Caprini Risk Assessment Model Point Value = 1 Point Value = 2 Point Value = 3 Point Value = 5 Age 41-60 Minor surgery BMI > 25 kg/m2 Swollen legs Varicose veins or History of unexplained or recurrent spontaneous Oral contraceptives or hormone replacement Sepsis (< 1 month) Serious lung disease, including pneumonia (< 1 month) Abnormal pulmonary function Acute myocardial infarction Congestive heart failure (< 1 month) History of inflammatory bowel disease Medical patient at bed rest Age 61-74 Arthroscopic surgery Major open surgery (> 45 min) Laparoscopic surgery (> 45 min) Malignancy Confined to bed (> 72 hours) Immobilizing plaster cast Central venous access Age >= 75 History of VTE Family history of VTE Factor V Leiden Prothrombin [id number] Lupus anticoagulant Anticardiolipin antibodies Elevated serum homocysteine Heparin-induced thrombocytopenia Other congenital or acquired thrombophilia Stroke (< 1 month) Elective arthroplasty Hip, pelvis, or leg fracture Acute spinal cord injury (< 1 month) Prophylaxis Regimen Total Risk Factor Score Risk Level Prophylaxis Regimen 0-1 Low Early ambulation 2 Moderate Order ONE of the following: *Sequential Compression Device (SCD) *Heparin 5000 units SQ BID 3-4 Higher Order ONE of the following medications: *Heparin 5000 units SQ TID *Enoxaparin/Lovenox 40 mg SQ daily (WT < 150 kg, CrCl > 30 mL/min) *Enoxaparin/Lovenox 30 mg SQ daily (WT < 150 kg, CrCl > 10-29 mL/min) *Enoxaparin/Lovenox 30 mg SQ BID (WT < 150 kg, CrCl > 30 mL/min) AND/OR *Sequential Compression Device (SCD) 5 or more Highest Order ONE of the following medications: *Heparin 5000 units SQ TID (Preferred with Epidurals) *Enoxaparin/Lovenox 40 mg SQ daily (WT < 150 kg, CrCl > 30 mL/min) *Enoxaparin/Lovenox 30 mg SQ daily (WT < 150 kg, CrCl > 10-29 mL/min) *Enoxaparin/Lovenox 30 mg SQ BID (WT < 150 kg, CrCl > 30 mL/min) AND *Sequential Compression Device (SCD) Horace Alfaro MD May 04, 2018 12:46
[2018-05-04] MEDS ORDERED: ENOXAPARIN SODIUM 40 MG/0.4 ML SYRINGE SQ SCH (18:00)
[2018-05-04] MEDS: ATORVASTATIN 80 MG TAB PO SCH (20:44)
[2018-05-05] VITALS: BP 133/75; PULSE 95; RESP 20; TEMP 98.6; O2SAT 96
[2018-05-05] MEDS: SODIUM CHLOR 0.9% 1000 ML INJ 1,000 ML IV SCH (00:03)
[2018-05-05 04:58] VITALS: BP 145/70; PULSE 89; RESP 19; TEMP 97.6; O2SAT 97
[2018-05-05 07:07] VITALS: PULSE 87
[2018-05-05 07:58] VITALS: BP 128/79; PULSE 85; RESP 16; TEMP 98.5; O2SAT 94
[2018-05-05] MEDS: PREGABALIN 75 MG CAP PO SCH (09:18)
[2018-05-05] MEDS: CARVEDILOL 3.125 MG TAB PO SCH (09:18)
[2018-05-05] MEDS: CLOPIDOGREL 75 MG TAB PO SCH (09:18)
[2018-05-05] MEDS: LISINOPRIL 5 MG TAB PO SCH (09:18)
[2018-05-05] MEDS: SERTRALINE HCL 50 MG TAB PO SCH (09:18)
[2018-05-05] MEDS: GABAPENTIN 300 MG CAP PO SCH (09:19)
[2018-05-05] MEDS: SODIUM CHLORIDE 0.9% FLUSH 10 ML FLUSH IV FLUSH SCH (09:19)
[2018-05-05] MEDS: DOCUSATE SODIUM 50 MG/SENNA 8.6 MG TAB PO SCH (09:21)
[2018-05-05] MEDS: INSULIN NovoLIN REGULAR SUPPLEMENTAL SCALE SQ SCH (09:25)
--- NOTE | 2018-05-05 09:26 | HHI.DCPOC ---
Discharge Care Plan Diagnosis: (1) Knee osteoarthritis (2) Lower extremity weakness (3) Musculoskeletal pain Goals to Promote Your Health * To prevent worsening of your condition and complications * To maintain your health at the optimal level Directions to Meet Your Goals Take your medications as prescribed Follow your dietary instruction Follow activity as directed Keep your appointments as scheduled Take your immunizations and boosters as scheduled If your symptoms worsen call your PCP, if no PCP go to Urgent Care Center or Emergency Room Smoking is Dangerous to Your Health. Avoid second hand smoke Call the 24-hour hour crisis hotline for domestic abuse at Latha Joshua MD May 05, 2018 09:26
--- NOTE | 2018-05-05 09:35 | HHI.DS ---
Discharge Summary Admission Date May 03, 2018 at 11:17 Discharge Date: May 05, 2018 Admitting Diagnosis Bilateral lower extremity weakness (1) Knee osteoarthritis ICD Code: M17.10 - Unilateral primary osteoarthritis, unspecified knee (2) Lower extremity weakness ICD Code: R29.898 - Other symptoms and signs involving the musculoskeletal system Procedures None Brief History - From Admission This is a 68-year-old female who presents to the emergency department complaining of inability to walk. Patient reports that for the past month she has been having problems with her knees giving out. Last night, she was unable to get up and ambulate because of her knees giving out. She had several falls and complains of bilateral elbow and knee pain. She also hit her head but denies loss of consciousness. She denies neck pain, unilateral weakness, fever , chills, insect bites, rash, nausea, difficulty swallowing, shortness of breath , chest pain, UTI symptoms, diarrhea, numbness and incontinence. Denies taking any new medicine. States she has chronic lower back pain, coronary artery disease status post stent in 2014, breast cancer status post surgery, chemo and radiation therapy, diabetes mellitus, hypertension, hyperlipidemia, fibromyalgia and depression. All other systems reviewed negative. CBC/BMP: 05/03/18 0850 05/03/18 0850 Significant Findings Laboratory Tests Test 05/03/18 08:50 05/03/18 16:25 05/04/18 06:30 05/04/18 10:40 Monocytes (%) (Auto) 10.0 % (0.0-8.0) Monocytes # (Auto) 1.0 TH/MM3 (0-0.9) Random Glucose 428 MG/DL (74-106) Estimat Glomerular Filtration Rate 72 ML/MIN (>89) Urine Turbidity HAZY (CLEAR) Urine Specific [place] 1.039 (1.002-1.035) Urine Ketones TRACE mg/dL (NEG) Urine Leukocyte Esterase TRACE (NEG) Urine WBC 23 /hpf (0-5) Urine Bacteria OCC /hpf (NONE) Imaging Brain MRI 05/04/18 0000 Signed Impressions: CONCLUSION: 1. Unremarkable MRI of the brain. 2. No acute infarction. Thoracic Spine MRI 05/03/18 Signed Impressions: CONCLUSION: 1. T2 signal throughout the central cord but greatest from T8 to T11 could be related to prominence of the central canal versus syrinx. 2. Small central protrusion at T6-7 without canal stenosis. 3. No compression fracture or spondylolisthesis. Lumbar Spine CT 05/03/18 Signed Impressions: CONCLUSION: 1. No compression fracture or spondylolisthesis. 2. Levocurvature. 3. Mild degenerative changes. 4. Multilevel disc bulges without canal stenosis. Knee X-Ray 05/03/18 Signed Impressions: CONCLUSION: Mild osteoarthritis without fracture. Head CT 05/03/18 Signed Impressions: CONCLUSION: 1. No acute intracranial abnormality Cervical Spine MRI 05/03/18 Signed Impressions: CONCLUSION: 1. No acute findings. No cord compression or cord signal abnormality. Mild deg enerative disc disease. PE at Discharge GENERAL: WN, WD female sitting up in bed in NAD. SKIN: Warm and dry. HEENT: AT/NC. Pupils equal and round. MMM. NECK: Supple no tender LAD or JVD. HEART: RRR no m/r/g. LUNGS: CTAB without wheezes or crackles. ABDOMEN: +BS, soft, NT, ND. EXTREMITIES: No LE edema. Bilateral knees with no gross abnormalities, edema, effusion, warmth, or redness but tender with minimal palpation. LE strength 5/ 5. NEURO: Awake and alert. Nonfocal. PSYCH: Appropriate mood and affect. Pt update on day of discharge Patient seen and examined for follow-up of lower extremity weakness. She states she feels she has full strength back in her legs and has had no issues ambulating. Her biggest concern is pain in her bilateral knees. She has not seen an orthopedic surgeon or pain management doctor for this. She refuses any home health care physical therapy. She feels ready to go home. Hospital Course 68 YOWF with CAD, DM, HTN, HLD, depression, chronic low back pain, and history of breast cancer admitted on 05/03 because her legs have been progressively giving out over the last month to the point where she was unable to ambulate. CBC, BMP, ESR, total CK, and TSH WNL. Neurology was consulted. MRI brain was unremarkable. C-spine MRI showed no acute findings other than degenerative disc disease; L-spine CT showed mild degenerative changes along with multilevel disc bulges without canal stenosis. T-spine MRI showed T2 signalling throughout the central cord but greatest from T8-T11 which could be related to prominence of the central canal verus syrinx; therefore, neurosurgery was consulted but it was felt this was an incidental finding and there was no operative intervention indicated. PT was consulted who recommended HHC with PT however the patient refused any HHC or OP PT. She was advised to follow up with her PCP to discuss seeing an orthopedic surgeon for her bilateral knee OA which could have been the cause of her knees giving out. She was discharged in stable condition on . Pt Condition on Discharge: Stable Discharge Disposition: Discharge Home Discharge Time: <= 30 minutes Discharge Instructions DIET: Follow Instructions for: Heart Healthy Diet Activities you can perform: Regular-No Restrictions Follow up Referrals: PCP Follow-up - 1 Week Continued Medications: Atorvastatin (Atorvastatin) 80 Mg Tab 80 MG PO HS for Cholesterol Management, #30 TAB 0 Refills Baclofen (Baclofen) 10 Mg Tab 10 MG PO DAILY PRN for MUSCLE SPASM, TAB 0 Refills Carvedilol (Carvedilol) 3.125 Mg Tab 3.125 MG PO BID, #60 TAB 0 Refills Clopidogrel (Clopidogrel) 75 Mg Tab 75 MG PO DAILY for Blood Clot Prevention, #30 TAB 0 Refills Gabapentin (Gabapentin) 600 Mg Tab 600 MG PO TID, #90 TAB 0 Refills Liraglutide Inj (Victoza Inj) 18 Mg/3 Ml Pen 1.2 MG SQ DAILY, #1 PEN 0 Refills Lisinopril (Lisinopril) 2.5 Mg Tab 2.5 MG PO DAILY, #30 TAB 0 Refills Pregabalin (Lyrica) 75 Mg Cap 75 MG PO BID, #60 CAP 0 Refills Sertraline (Sertraline) 50 Mg Tab 50 MG PO DAILY, #30 TAB 0 Refills Sitagliptin-Metformin (Janumet) 50-1,000 Mg Tab 1 TAB PO BID for Blood Sugar Management, #60 TAB 0 Refills Tramadol (Tramadol) 50 Mg Tab 50 MG PO Q6H PRN for PAIN, #10 TAB 0 Refills Discontinued Medications: Nitrofurantoin Monohydrate Macrocrystals (Macrobid) 100 Mg Capsule 100 MG PO BID for Infection for 5 Days, CAP 0 Refills Fritze,Latha Maeve MD May 05, 2018 09:35
[2018-05-05 16:24] LABS: HEMOGLOBIN A1C 12.5 % (4.3-6.0)
== END 2018-05-05 10:15 | disposition home or self-care (01) ==
LOC: NEPC 07:44 → NEDA 11:17 → NEPFCDU 15:59
PROVIDERS: ADMIT Family Medicine; ATTEND Family Medicine
DX: R53.1 Weakness (principal); I25.10 Atherosclerotic heart disease of native coronary artery without angina pectoris; Z95.5 Presence of coronary angioplasty implant and graft; G89.29 Other chronic pain; M54.5 Low back pain; F41.9 Anxiety disorder, unspecified; F32.9 Major depressive disorder, single episode, unspecified; E11.65 Type 2 diabetes mellitus with hyperglycemia; M79.7 Fibromyalgia; Z85.3 Personal history of malignant neoplasm of breast; R51 Headache; I10 Essential (primary) hypertension; Z79.899 Other long term (current) drug therapy; Z79.4 Long term (current) use of insulin; Z79.01 Long term (current) use of anticoagulants; R29.898 Other symptoms and signs involving the musculoskeletal system; Z90.710 Acquired absence of both cervix and uterus; E78.5 Hyperlipidemia, unspecified; G95.0 Syringomyelia and syringobulbia; R29.6 Repeated falls; M51.36 Other intervertebral disc degeneration, lumbar region; B37.9 Candidiasis, unspecified; M17.12 Unilateral primary osteoarthritis, left knee
CPT/HCPCS: 70450; 70553; 72131; 72156; 72157; 73560; 80048; 81001; 82550; 82948; 83036; 84443; 85025; 85652; 87086; 87106; 96360; 96361; 96372; 97162; 99285; A9579; G0378; G8987; G8988; J1650; J7030